=== PATIENT | female | born 1970 | race Caucasian/White ===

== ENCOUNTER 2016-09-22 16:41 | Inpatient (IN) ==
--- NOTE | 2016-09-22 18:50 | Emergency Department Note ---
START Narrative - START START: I examined this patient and my medical decision-making was reviewed with the Resident Physician. I agree with the documented findings, disposition and treatment plan as described except to the extent set forth below. 46-year-old female presents emergency room for a back wound evaluation. Patient had a recent spinal stimulator placement done. Now she is having pus drainage that she reports from the upper vertical incision. She has a history of being infected in this area before from a previous implant. She denies any bowel or bladder cutlets. No spinal cord complaints. No documented fevers. Patient was sent in by her physician for this evaluation to have a CT done and lab work. Unable to give IV contrast due to the patient's renal insufficiency. We will do a noncontrast CT of the lumbar spine as well as lab work.
[2016-09-22 18:56] LABS: Basophils # 0.1 K/mcL (0.0-0.2); Basophils % 0.6 %; Eosinophils # 0.6 K/mcL (0.0-0.6); Eosinophils % 6.3 %; Hematocrit 39.2 % (35.3-44.9); Hemoglobin 12.4 g/dL (11.5-15.4); Immature Granulocytes % 0.5 % (0-4); Lymphocytes # 2.4 K/mcL (0.6-4.6); Lymphocytes % 27.8 %; Mean Corpuscular HGB Conc 31.6 g/dL (31.6-35.5); Mean Corpuscular Hemoglobin 32.7 pg (28.0-33.3); Mean Corpuscular Volume 103.4 fL (83.0-100.0); Mean Platelet Volume 10.6 fL (9.4-12.4); Monocytes # 0.5 K/mcL (0.0-1.3); Monocytes % 5.4 %; Neutrophils # 5.2 K/mcL (1.6-8.9); Platelet Count 287 K/mcL (140-400); Red Blood Count 3.79 M/mcL (3.82-4.97); Red Cell Distribution Width 12.6 % (11.5-14.5); Segmented Neutrophils % 59.4 %
[2016-09-22 19:07] LABS: Calcium 9.3 mg/dL (8.6-10.8); Potassium 4.2 mEq/L (3.5-4.5)
[2016-09-22] MEDS ORDERED: 0.9 % Sodium Chloride 1,000 ML IVC ONE (20:16)
--- NOTE | 2016-09-22 20:27 | Emergency Department Note ---
Disposition Clinical Impression: Infection of spinal cord stimulator Qualifiers: Encounter type: subsequent encounter Qualified Code(s): T85.733D - Infection and inflammatory reaction due to implanted electronic neurostimulator of spinal cord, electrode (lead), subsequent encounter Disposition: Admitted As Inpatient Condition: Fair Referrals: NONE,PCP [Primary Care Provider] - Forms: ED Satisfaction Letter Time of Disposition: 21:48 General Adult HPI - General Chief complaint: ED Recheck/Abnormal Lab/Rx Stated complaint: needs CT Time Seen by Provider: 09/22/16 18:21 Source: patient Limitations: no limitations Nursing Notes Reviewed: Yes Vital Signs Reviewed: Yes - History of Present Illness HPI Narrative: The patient is a 46-year-old female with sent over from Dr. Willoughby's office of pain management secondary to suspected spinal stimulator infection. Patient states this is her second pain stimulator. Her first one had to be removed secondary to an infection. Patient is status post 3 weeks from insertion of this stimulator. Patient has a history of diabetes, ESRD stage IV. Dr. Willoughby called the ED stating patient needs CT thoracic lumbar spine labs and cultures and recommends admission for removal stimulator Pain Scale: 9 - Related Data Home Medications Medication Instructions Recorded Confirmed Albuterol Sulfate [Proair Hfa] 2 puff IH Q4H PRN 09/24/15 09/22/16 Aspirin Enteric Coated [Aspirin EC] 81 mg PO DAILY 09/24/15 09/22/16 Ergocalciferol (VITAMIN D2) 50,000 unit PO HERNANDEZ 09/24/15 09/22/16 [Vitamin D2 (50,000 UNIT)] Famotidine [Pepcid] 20 mg PO BID 09/24/15 09/22/16 Fenofibrate [Lofibra] 160 mg PO DAILY 09/24/15 09/22/16 Isosorbide MONOnitrate (24 HR) 30 mg PO DAILY 09/24/15 09/22/16 [Imdur] Montelukast [Singulair] 10 mg PO HS 09/24/15 09/22/16 Roflumilast [Daliresp] 500 mcg PO DAILY 09/24/15 09/22/16 SUMAtriptan succinate [Imitrex] 50 mg PO DAILY PRN 09/24/15 09/22/16 Tizanidine HCl 4 mg PO TID PRN 09/24/15 09/22/16 traMADol [Ultram] 50 mg PO TID PRN 09/24/15 09/22/16 Metoprolol XL (24 HR) Succ [Toprol 25 mg PO DAILY 10/19/15 09/22/16 XL] Oxaprozin [Daypro] 600 mg PO BID 10/19/15 09/22/16 Docusate Sodium [Doc-Q-Lace] 200 mg PO HS 10/26/15 09/22/16 EPINEPHrine [Epipen] 0.3 mg IM AD PRN 10/26/15 09/22/16 Amitriptyline [Elavil] 25 mg PO HS 09/22/16 09/22/16 Bacitracin OINT [Ak-Tracin] 1 appl TP BID 09/22/16 09/22/16 Budesonide/Formoterol 80/4.5 2 puff IH BID 09/22/16 09/22/16 [Symbicort 80/4.5] Cyanocobalamin (Vitamin B-12) 1,000 mcg PO DAILY 09/22/16 09/22/16 [Vitamin B12] Duloxetine HCl [Cymbalta] 60 mg PO DAILY 09/22/16 09/22/16 Febuxostat [Uloric] 40 mg PO DAILY 09/22/16 09/22/16 Folic Acid 1 mg PO DAILY 09/22/16 09/22/16 Glimepiride [Amaryl] 4 mg PO BID 09/22/16 09/22/16 Omeprazole [PriLOSEC] 40 mg PO DAILY 09/22/16 09/22/16 Rosuvastatin [Crestor] 20 mg PO HS 09/22/16 09/22/16 Tiotropium [Spiriva] 18 mcg IH 0700 09/22/16 09/22/16 Allergies Allergy/AdvReac Type Severity Reaction Status Date / Time Bee Pollen Allergy See Verified 09/22/16 16:53 Comments Erythromycin Base Allergy Hives Verified 09/22/16 16:53 Review of Systems: Patient denies fever, chills, nausea, vomiting, no diarrhea, abdominal pain, chest pain, shortness of breath. Patient has pain around the surgical site. All systems ED: reviewed and negative except as stated. Review of Systems: As Per HPI Past Medical History - Past Medical History Attestation: Yes The following information was validated with the patient. Source: patient Medical history: Reports: asthma, COPD, diabetes, GERD, hyperlipidemia, migraine , RA, renal disease, other Surgical history: Reports: hysterectomy, orthopedic, other, sinus surgery, other Psychiatric history: Reports: anxiety, depression, panic disorder - Social History Smoking Status: Current every day smoker Smokeless Tobacco Status: No Alcohol use: Reports: none Drug use: Reports: none Physical Exam Vital Signs Temperature 98.1 F 09/22/16 16:50 Pulse Rate 80 09/22/16 16:50 Respiratory Rate 18 09/22/16 16:50 Blood Pressure 124/83 09/22/16 16:50 O2 Sat by Pulse Oximetry 100 09/22/16 16:50 Temperature 98.1 F 09/22/16 16:50 Pulse Rate 76 09/22/16 20:30 Respiratory Rate 18 09/22/16 20:30 Blood Pressure 118/73 09/22/16 20:30 O2 Sat by Pulse Oximetry 98 09/22/16 20:30 Oxygen Delivery Oxygen Delivery Room Air -General Appearance: Patient is a 46-year-old female who is alert and oriented 3 and in no acute distress. Patient is smiling when I walked into the room. Patient is laying comfortably, and has no complaints other than she is with her pain similar to her back. -Neurological exam: Cranial nerves II-12 intact, no focal deficits observed, strength equal 5/5 bilaterally in upper and lower extremities, cerebellar motion test negative. Negative loss of sensation, - Head Head exam: atraumatic, normocephalic, normal inspection - Eye Eye exam: Present: normal appearance, PERRL, EOMI, negative for scleral icterus negative for conjunctival pallor - ENT ENT exam: normal exam, normal oropharynx, mucous membranes moist - Neck Neck exam: Present: normal inspection, full ROM, trachea midline, negative JVD - Chest Chest inspection: Present: Patient has bilateral equal rise and fall of chest wall. Non-tender to palpation. - Respiratory Respiratory exam: Clear to auscultation bilaterally without wheezes rales or rhonchi Cardiovascular Cardiovascular exam: Present: regular rate, normal rhythm, normal heart sounds, without murmurs rubs or gallops. - Abdominal Exam Abdominal exam: Present: soft, nondistended, Non-Tender light and deep palpation in all quadrants. Bowel sounds normoactive throughout all 4 quadrants. Negative for hyper or hyperresonance. - Extremities Exam Extremities exam: Present: normal inspection, full ROM - Back Exam Back exam: Present: normal inspection, full ROM. Absent: tenderness, CVA tenderness (R), CVA tenderness (L), tenderness at the site of induration surrounded midline surgical incision that has slight area of dehiscence and appears purulent. 5 cm area diameter of induration. No tenderness or inflammation around stimulator located right iliolumbar area. - Psychiatric Psychiatric exam: Present: normal affect, normal mood - Skin Skin exam: Present: warm, dry, abnormal incision site - General Limitations: no limitations General appearance: alert, in no apparent distress Course - Consultations Consultation #1: Spoke to Dr. Willoughby PM&R recommends admission and consultation with infectious disease and nephrology for broad-spectrum antibiotic plan to help preserve kidney function. He states that he will assess patient tomorrow concerning her pain stimulator to assess whether or not he can salvage the stimulator. If he cannot salvage the stimulator he will remove the stimulator himself. He states he does not see the need for surgical consult at this time. Time: 21:00 Consultation #2: Dr. Gannon has accepted for admission at 2137 hrs. this in brief and Dr. Willoughby 's plan for infectious disease consult to come up with broad-spectrum antibiotic plan to help preserve kidney function. Time: 21:41 Vital Signs Temperature 98.1 F 09/22/16 16:50 Pulse Rate 80 09/22/16 16:50 Respiratory Rate 18 09/22/16 16:50 Blood Pressure 124/83 09/22/16 16:50 O2 Sat by Pulse Oximetry 100 09/22/16 16:50 Temperature 98.1 F 09/22/16 16:50 Pulse Rate 76 09/22/16 20:30 Respiratory Rate 18 09/22/16 20:30 Blood Pressure 118/73 09/22/16 20:30 O2 Sat by Pulse Oximetry 98 09/22/16 20:30 Oxygen Delivery Oxygen Delivery Room Air Medical Decision Making - MDM Narrative Medical decision making narrative: Patient presented with postsurgical complication pain stimulator infection was sent over to the ED after seeing her pain specialist is Dr. Willoughby in office for workup of back CT, lab work, cultures and a request for admission for further assessment concerning the spinal pain stimulator. labs show a elevation of ESR but no elevation C and PE. ESR is 22. CT spine shows Lumbar Spine CT 09/22/16 18:50 IMPRESSION: 1. There is ill-defined fluid adjacent to the paraspinal musculature along the midline, without a well-defined rim. Probably, this is postsurgical edema. The possibility of phlegmon is also considered. Although an abscess is not entirely excluded, it is considered less likely. 2. Stimulator pack is in place within the subcutaneous fat in the right lower back. The superior most aspects of the leads are not visualized. 3. Question perinephric fat stranding bilaterally, somewhat greater on the right. Correlation with urinalysis is recommended. 4. Cholelithiasis, incompletely evaluated. D/ / Imer Carrillo MD / Imer Carrillo MD Interpreting Provider: Imer Carrillo MD I discussed the findings with Dr. Willoughby who still recommends admission. He does warn cautioned concerning broad-spectrum antibiotic use as patient's kidneys are still working but patient is ESRD stage IV being evaluated for dialysis. Patient is received 1 g of Rocephin and vancomycin on hold. Dr. Whittington states he will see patient tomorrow to assess the stimulator for salvage or removal. Patient is doing well, afebrile with stable vitals in normal ranges. Patient accepts admission and further treatment and care. Patient was accepted for admission by the hospitalist who is informed of conversation with Dr. Willoughby concerning ID and nephrology consults. - Medical Records Medical records reviewed: Yes I reviewed the patient's medical records. - Lab Data Lab results reviewed: Yes I reviewed the patient's lab results. Lab results narrative: Short CBC 09/22/16 Range/Units 18:47 WBC 8.7 (4.3-11.1) K/mcL Hgb 12.4 (11.5-15.4) g/dL Hct 39.2 (35.3-44.9) % Plt Count 287 (140-400) K/mcL Neutrophils # 5.2 (1.6-8.9) K/mcL BMP 09/22/16 Range/Units 18:47 Sodium 137 (136-145) mEq/L Potassium 4.2 (3.5-4.5) mEq/L Chloride 103 (98-109) mEq/L Carbon Dioxide 26 (19-29) mEq/L BUN 19 (7-20) mg/dL Creatinine 1.71 H (0.57-1.11) mg/dL Glucose 149 H (70-99) mg/dL Calcium 9.3 (8.6-10.8) mg/dL Urine 09/22/16 Range/Units 21:17 Urine Color Yellow (Yellow) Urine Clarity Clear (Clear) Urine pH 7.0 (5.0-8.0) pH Units Ur Specific [place] 1.021 (1.010-1.025) Urine Protein Negative (Neg-Trace) mg/dL Urine Glucose (UA) Normal (Normal) mg/dL Result diagrams: 09/22/16 18:47 09/22/16 18:47 Lab Results 09/22/16 09/22/16 09/22/16 Range/Units 18:47 18:47 18:47 WBC 8.7 (4.3-11.1) K/mcL RBC 3.79 L (3.82-4.97) M/mcL Hgb 12.4 (11.5-15.4) g/dL Hct 39.2 (35.3-44.9) % MCV 103.4 H (83.0-100.0) fL MCH 32.7 (28.0-33.3) pg MCHC 31.6 (31.6-35.5) g/dL RDW 12.6 (11.5-14.5) % Plt Count 287 (140-400) K/mcL MPV 10.6 (9.4-12.4) fL Immature Gran % 0.5 (0-4) % Seg Neutrophils % 59.4 % Lymphocytes % 27.8 % Monocytes % 5.4 % Eosinophils % 6.3 % Basophils % 0.6 % Neutrophils # 5.2 (1.6-8.9) K/mcL Lymphocytes # 2.4 (0.6-4.6) K/mcL Monocytes # 0.5 (0.0-1.3) K/mcL Eosinophils # 0.6 (0.0-0.6) K/mcL Basophils # 0.1 (0.0-0.2) K/mcL ESR 22 H (0-15) mm/hr Sodium 137 (136-145) mEq/L Potassium 4.2 (3.5-4.5) mEq/L Chloride 103 (98-109) mEq/L Carbon Dioxide 26 (19-29) mEq/L BUN 19 (7-20) mg/dL Creatinine 1.71 H (0.57-1.11) mg/dL Est GFR ( Amer) 39 L (> 60) Est GFR (Non-Af Amer) 32 L (> 60) BUN/Creatinine Ratio 11 (6-26) Glucose 149 H (70-99) mg/dL Calculated Osmolality 289 (280-300) Calcium 9.3 (8.6-10.8) mg/dL C-Reactive Protein 1 (Less than 5) mg/L Urine Color (Yellow) Urine Clarity (Clear) Urine pH (5.0-8.0) pH Units Ur Specific [place] (1.010-1.025) Urine Protein (Neg-Trace) mg/dL Urine Glucose (UA) (Normal) mg/dL Urine Ketones (Negative) mg/dL Urine Blood (Negative) Urine Nitrite (Negative) Urine Bilirubin (Negative) Urine Urobilinogen (Normal) mg/dL Ur Leukocyte Esterase (Negative) Ur Culture Indicated? (NO) 09/22/16 Range/Units 21:17 WBC (4.3-11.1) K/mcL RBC (3.82-4.97) M/mcL Hgb (11.5-15.4) g/dL Hct (35.3-44.9) % MCV (83.0-100.0) fL MCH (28.0-33.3) pg MCHC (31.6-35.5) g/dL RDW (11.5-14.5) % Plt Count (140-400) K/mcL MPV (9.4-12.4) fL Immature Gran % (0-4) % Seg Neutrophils % % Lymphocytes % % Monocytes % % Eosinophils % % Basophils % % Neutrophils # (1.6-8.9) K/mcL Lymphocytes # (0.6-4.6) K/mcL Monocytes # (0.0-1.3) K/mcL Eosinophils # (0.0-0.6) K/mcL Basophils # (0.0-0.2) K/mcL ESR (0-15) mm/hr Sodium (136-145) mEq/L Potassium (3.5-4.5) mEq/L Chloride (98-109) mEq/L Carbon Dioxide (19-29) mEq/L BUN (7-20) mg/dL Creatinine (0.57-1.11) mg/dL Est GFR ( Amer) (> 60) Est GFR (Non-Af Amer) (> 60) BUN/Creatinine Ratio (6-26) Glucose (70-99) mg/dL Calculated Osmolality (280-300) Calcium (8.6-10.8) mg/dL C-Reactive Protein (Less than 5) mg/L Urine Color Yellow (Yellow) Urine Clarity Clear (Clear) Urine pH 7.0 (5.0-8.0) pH Units Ur Specific [place] 1.021 (1.010-1.025) Urine Protein Negative (Neg-Trace) mg/dL Urine Glucose (UA) Normal (Normal) mg/dL Urine Ketones Negative (Negative) mg/dL Urine Blood Negative (Negative) Urine Nitrite Negative (Negative) Urine Bilirubin Negative (Negative) Urine Urobilinogen Normal (Normal) mg/dL Ur Leukocyte Esterase Negative (Negative) Ur Culture Indicated? NO (NO) - Radiology Data Radiology results reviewed: Yes I reviewed the patient's radiology results. Lumbar Spine CT 09/22/16 18:50
[2016-09-22] MEDS ORDERED: Vancomycin 2,000 MG in D5% in Water 500 ML IVPB ONE (20:28)
[2016-09-22] MEDS ORDERED: Vancomycin 1,750 MG in D5% in Water 250 ML IVPB SCH (21:00)
[2016-09-22] MEDS ORDERED: Ondansetron 4 MG/2 ML VIAL IVP ONE (21:01)
[2016-09-22] MEDS ORDERED: *HR* Morphine 2 MG/ML SYRINGE IVP ONE (21:02)
[2016-09-22 21:27] LABS: Bilirubin,Urine Negative (Negative); Blood,Urine Negative (Negative); Clarity,Urine Clear (Clear); Color,Urine Yellow (Yellow); Glucose,Urine (UA) Normal (Normal); Ketones,Urine Negative (Negative); Leukocyte Esterase,Urine Negative (Negative); Nitrite,Urine Negative (Negative); Protein,Urine Negative (Neg-Trace); Specific Gravity,Urine 1.021 (1.010-1.025); Urobilinogen,Urine Normal (Normal)
--- NOTE | 2016-09-22 23:37 | Internal Med History&Physical ---
Date of Encounter: 09/22/16 Time of Encounter: 23:34 Assessment and Plan (1) Infection of spinal cord stimulator Current visit: No Status: Acute I will start the patient on clindamycin and Levaquin. He did not feel after midnight. Dr. Jacobs to see the patient in the morning. Avoid nephrotoxic drugs. Qualifiers: Encounter type: initial encounter Qualified Code(s): T85.733A - Infection and inflammatory reaction due to implanted electronic neurostimulator of spinal cord, electrode (lead), initial encounter (2) Diabetes mellitus Current visit: Yes Status: Acute Sliding scale insulin Qualifiers: Qualified Code(s): E11.9 - Type 2 diabetes mellitus without complications (3) CKD stage 3 secondary to diabetes Current visit: Yes Status: Acute Stable Internal Medicine - H&P: HPI Chief complaint: stimulator infection History of present illness: Ms. Calvo is a 46 year old female with multiple medical problems presented emergency room sent from Dr. Jacobs's office because of concern of infected spine stimulator. Patient had spine stimulator placed 3 weeks ago. mentioned that she was having some drainage from insertion site. She denies any fevers or chills. No abdominal pain. He had a CT scan this morning showing concern for simulator site infection and was therefore sent to the emergency room. Family had simulator infection previously concerns with antibiotics which caused her kidney injury. Past Med Surg Social Fam HX - Past Medical History Medical history: asthma, COPD, diabetes, GERD, hyperlipidemia, migraine, RA, renal disease, other Psychiatric history: anxiety, depression, panic disorder - Past Surgical History Surgical History: hysterectomy, orthopedic, other, sinus surgery, other - Social History Smoking Status: Current every day smoker Packs per day: 1/2 pack Smokeless Tobacco Status: No Alcohol use: none Drug use: none - Family History Father Hx Family Cardiac Disorders: Yes (AK) Hx Family Endocrine Disorder: Yes (Diabetes) Grandfather Hx Family Respiratory Disorders: Yes (Emphysema) Internal Medicine - H&P: Meds Albuterol Sulfate [Proair Hfa] 2 puff IH Q4H PRN 09/24/15 [History] Aspirin Enteric Coated [Aspirin EC] 81 mg PO DAILY 09/24/15 [History] Ergocalciferol (VITAMIN D2) [Vitamin D2 (50,000 UNIT)] 50,000 unit PO HERNANDEZ [History] Famotidine [Pepcid] 20 mg PO BID 09/24/15 [History] Fenofibrate [Lofibra] 160 mg PO DAILY 09/24/15 [History] Isosorbide MONOnitrate (24 HR) [Imdur] 30 mg PO DAILY 09/24/15 [History] Montelukast [Singulair] 10 mg PO HS 09/24/15 [History] Roflumilast [Daliresp] 500 mcg PO DAILY 09/24/15 [History] SUMAtriptan succinate [Imitrex] 50 mg PO DAILY PRN 09/24/15 [History] Tizanidine HCl 4 mg PO TID PRN 09/24/15 [History] traMADol [Ultram] 50 mg PO TID PRN 09/24/15 [History] Metoprolol XL (24 HR) Succ [Toprol XL] 25 mg PO DAILY 10/19/15 [History] Oxaprozin [Daypro] 600 mg PO BID 10/19/15 [History] Docusate Sodium [Doc-Q-Lace] 200 mg PO HS 10/26/15 [History] EPINEPHrine [Epipen] 0.3 mg IM AD PRN 10/26/15 [History] Amitriptyline [Elavil] 25 mg PO HS 09/22/16 [History] Bacitracin OINT [Ak-Tracin] 1 appl TP BID 09/22/16 [History] Budesonide/Formoterol 80/4.5 [Symbicort 80/4.5] 2 puff IH BID 09/22/16 [History ] Cyanocobalamin (Vitamin B-12) [Vitamin B12] 1,000 mcg PO DAILY 09/22/16 [History ] Duloxetine HCl [Cymbalta] 60 mg PO DAILY 09/22/16 [History] Febuxostat [Uloric] 40 mg PO DAILY 09/22/16 [History] Folic Acid 1 mg PO DAILY 09/22/16 [History] Glimepiride [Amaryl] 4 mg PO BID 09/22/16 [History] Omeprazole [PriLOSEC] 40 mg PO DAILY 09/22/16 [History] Rosuvastatin [Crestor] 20 mg PO HS 09/22/16 [History] Tiotropium [Spiriva] 18 mcg IH 0700 09/22/16 [History] Allergies Bee Pollen Allergy (Verified 09/22/16 16:53) See Comments Erythromycin Base Allergy (Verified 09/22/16 16:53) Hives All Systems PM: A 10-system review of systems was performed and is negative for pertinent findings except as documented above in the HPI. Review of systems: 10 point review systems is negative except for HPI - Constitutional Vitals: Temp Pulse Resp BP Pulse Ox 98.3 F 82 18 138/93 98 09/22/16 22:33 09/22/16 22:33 09/22/16 22:33 09/22/16 22:33 09/22/16 22:33 Exam: Gen.: patient is alert oriented times 3 Not in distress cardiac: normal S1 S2 no additional sounds are murmurs chest: clear auscultation abdomen: soft nontender nondistended normal bowel sounds lower extremity lax calf muscles Back: opening at stimulator insertion site. Family mentions there is small ammount of drainage form it Internal Med - H&P Results - Labs CBC & Chem 7: 09/22/16 18:47 09/22/16 18:47
[2016-09-22] MEDS ORDERED: Levofloxacin 750 MG/150 ML 750 MG/150 ML BAG IVPB SCH (23:45)
[2016-09-23] MEDS ORDERED: Clindamycin 900 MG/50 ML 900 MG/50 ML IV.SOLN IVPB SCH
[2016-09-23] MEDS: traMADol 50 MG TABLET PO PRN ×3 (00:01→21:56)
[2016-09-23] MEDS: *HR* Morphine 2 MG/ML SYRINGE IVP PRN (03:53)
[2016-09-23 06:18] LABS: Basophils # 0.1 K/mcL (0.0-0.2); Basophils % 0.6 %; Eosinophils # 0.6 K/mcL (0.0-0.6); Eosinophils % 6.7 %; Hematocrit 37.5 % (35.3-44.9); Hemoglobin 12.1 g/dL (11.5-15.4); Immature Granulocytes % 1.1 % (0-4); Lymphocytes # 3.5 K/mcL (0.6-4.6); Lymphocytes % 40.4 %; Mean Corpuscular HGB Conc 32.3 g/dL (31.6-35.5); Mean Corpuscular Hemoglobin 33.3 pg (28.0-33.3); Mean Corpuscular Volume 103.3 fL (83.0-100.0); Mean Platelet Volume 11.3 fL (9.4-12.4); Monocytes # 0.7 K/mcL (0.0-1.3); Monocytes % 7.9 %; Neutrophils # 3.7 K/mcL (1.6-8.9); Nucleated Red Blood Cells 0.2 /100 WBC (0); Platelet Count 230 K/mcL (140-400); Red Blood Count 3.63 M/mcL (3.82-4.97); Red Cell Distribution Width 12.7 % (11.5-14.5); Segmented Neutrophils % 43.3 %
[2016-09-23] MEDS ORDERED: Clindamycin 600 MG/50 ML 600 MG/50 ML IV.SOLN IVPB SCH (08:00)
[2016-09-23] MEDS: Budesonide/Formoterol 80/4.5 MDI IH SCH ×2 (08:37→21:21)
[2016-09-23] MEDS: Tiotropium 18 MCG inhalation IH SCH (08:37)
[2016-09-23] MEDS: Fenofibrate 54 MG TABLET PO SCH (08:58)
[2016-09-23] MEDS: Metoprolol XL (24 HR) Succ 25 MG TAB.ER.24H PO SCH (08:58)
[2016-09-23] MEDS: Isosorbide MONOnitrate (24 HR) 30 MG TAB.ER.24H PO SCH (08:58)
[2016-09-23] MEDS: Aspirin Enteric Coated 81 MG Tablet PO SCH (08:58)
[2016-09-23] MEDS: Patient Taking Own Medication 1 EACH PO SCH (08:58)
[2016-09-23] MEDS: Insulin LISPRO 300 UNITS/3 ML VIAL SQ SCH ×4 (08:58→23:07)
[2016-09-23] MEDS ORDERED: Famotidine 20 MG TABLET PO SCH (09:00)
[2016-09-23 11:29] LABS: Calcium 9.1 mg/dL (8.6-10.8); Magnesium 1.7 mg/dL (1.6-2.6); Potassium 4.6 mEq/L (3.5-4.5)
[2016-09-23] MEDS ORDERED: *HR* OxyCODONE/APAP 5/325 TABLET PO ONE (11:48)
--- NOTE | 2016-09-23 13:18 | Internal Med Progress Note ---
<Eduardo Galaviz - Last Filed: 09/23/16 15:16> Date of Encounter: 09/23/16 Time of Encounter: 10:27 - Assessment and plan (1) Infection of spinal cord stimulator Current Visit: Yes Status: Acute Assessment and plan: Presents for concern for spinal cord stimulator infection inserted 3 weeks ago. Previous infection of 1st spinal cord stimulator CT shows ill-defined fluid near stimulator: most likely post-surgical edema, possibly phelgmon, and less likely abscess Blood culture 09/22/16 pending Wound culture 09/23/16 pending ID following - appreciate recommendations - continue antibiotics as per ID Plan for surgical I & D to further evaluate - patient currently NPO Qualifiers: Encounter type: subsequent encounter Qualified Code(s): T85.733D - Infection and inflammatory reaction due to implanted electronic neurostimulator of spinal cord, electrode (lead), subsequent encounter (2) CKD stage 3 secondary to diabetes Current Visit: Yes Status: Chronic Assessment and plan: Cr 1.7 (baseline 1.1-1.7) - will continue to monitor and avoid nephrotoxic drugs - Avoid vancomycin unless absolutely necessary - previous kidney injury on vancomycin Nephrology following - appreciate recommendations (3) Diabetes mellitus Current Visit: Yes Status: Chronic Assessment and plan: Currently NPO awaiting surgical I & D Sliding scale insulin, glucose checks - continue to monitor Qualifiers: Diabetes mellitus type: type 2 Diabetes mellitus complication status: with kidney complications Diabetes mellitus complication detail: with chronic kidney disease Chronic kidney disease stage: stage 3 (moderate) Qualified Code(s): E11.22 - Type 2 diabetes mellitus with diabetic chronic kidney disease ; N18.3 - Chronic kidney disease, stage 3 (moderate); Z79.4 - longterm (current ) use of insulin - Subjective Interval history: Patient seen and examined. Reports her back pain is under control, but she has a posterior headache. Reports there is mild drainage from nerve stimulator site. Denies chest pain, dyspnea, cough, N/V/D, dysuria, or leg edema. - Constitutional Vitals: Temp Pulse Resp BP Pulse Ox 98.3 F 77 16 98/64 96 09/23/16 12:00 09/23/16 12:00 09/23/16 12:00 09/23/16 11:40 09/23/16 12:00 General appearance: Present: A&O X 3, no acute distress, answers questions appropriately - Head Head exam: Present: atraumatic, normocephalic - Eye Eye exam: Present: sclera anicteric - ENT ENT exam: Present: mucous membranes moist - Respiratory Respiratory exam: Present: CTAB. Absent: rales, rhonchi, wheezes - Cardiovascular Cardiovascular exam: Present: RRR, +S1, +S2. Absent: distant heart sounds, systolic murmur - GI/Abdominal GI/Abdominal exam: Present: normal bowel sounds, soft. Absent: distended, rigid , tenderness - Extremities Exam Extremities exam: Present: warm, radial pulses palpable and symmetrical. Absent : calf tenderness, joint swelling, pedal edema - Neurological Exam Neurological exam: Present: alert, CN II-XII intact, oriented X3, no focal deficits Internal Medicine: Result - Labs CBC & Chem 7: 09/23/16 05:57 09/23/16 13:11 Labs: Short CBC 09/23/16 Range/Units 05:57 WBC 8.6 (4.3-11.1) K/mcL Hgb 12.1 (11.5-15.4) g/dL Hct 37.5 (35.3-44.9) % Plt Count 230 (140-400) K/mcL Neutrophils # 3.7 (1.6-8.9) K/mcL BMP 09/23/16 09:34 Sodium 139 Potassium 4.6 H Chloride 107 Carbon Dioxide 22 BUN 17 Creatinine 1.62 H Glucose 81 Calcium 9.1 - VTE Documentation of Mechanical Device: Intermittent pneumatic compression device Consult Discharge Plan - Plan Additional Instructions: Follow wound care instructions per nursing and wound care. Do not submerge the incisions in water until we tell you it is okay. We will give more instructions upon your discharge home. Referrals: NONE,PCP [Primary Care Provider] - <Jean Paul Ramsey - Last Filed: 09/23/16 19:28> Date of Encounter: 09/23/16 - Assessment and plan (1) Infection of spinal cord stimulator Current Visit: Yes Status: Acute Qualifiers: Encounter type: subsequent encounter Qualified Code(s): T85.733D - Infection and inflammatory reaction due to implanted electronic neurostimulator of spinal cord, electrode (lead), subsequent encounter (2) Diabetes mellitus Current Visit: Yes Status: Chronic Qualifiers: Diabetes mellitus type: type 2 Diabetes mellitus complication status: with kidney complications Diabetes mellitus complication detail: with chronic kidney disease Diabetes mellitus oil heaterman insulin use: with assisted use Chronic kidney disease stage: stage 3 (moderate) Qualified Code(s): E11.22 - Type 2 diabetes mellitus with diabetic chronic kidney disease; N18.3 - Chronic kidney disease, stage 3 (moderate); Z79.4 - termite control representative (current) use of insulin (3) COPD with asthma Current Visit: No Status: Chronic (4) Tobacco abuse Current Visit: No Status: Acute - Constitutional Vitals: Temp Pulse Resp BP Pulse Ox 98.1 F 75 14 105/68 95 09/23/16 16:12 09/23/16 16:12 09/23/16 16:12 09/23/16 16:12 09/23/16 16:12 Internal Medicine: Result - Labs CBC & Chem 7: 09/23/16 05:57 09/23/16 13:11 Labs: Short CBC 09/23/16 Range/Units 05:57 WBC 8.6 (4.3-11.1) K/mcL Hgb 12.1 (11.5-15.4) g/dL Hct 37.5 (35.3-44.9) % Plt Count 230 (140-400) K/mcL Neutrophils # 3.7 (1.6-8.9) K/mcL BMP 09/23/16 09/23/16 09:34 13:11 Sodium 139 138 Potassium 4.6 H 4.4 Chloride 107 105 Carbon Dioxide 22 27 BUN 17 16 Creatinine 1.62 H 1.64 H Glucose 81 123 H Calcium 9.1 9.3 - ABG Interpretation ABG results: PT/INR, D-dimer PT 11.3 Seconds (9.4-12.1) 09/23/16 13:11 - Attending Attestation I examined this patient and my medical decision-making was reviewed with the Resident Physician on 09/23/16. I agree with the documented findings, disposition and treatment plan as described except to the extent set forth below. Ms Calvo is currently admitted for possible infected spinal stimulator. She is high risk due to potential for worsening infectious and neurologic status. Ms Calvo is complaining mostly of a headache. No fever or chills. Tolerating IV abx. No CP or SOB. To go to OR today. Exam Alert. Comfortable Mucus membranes moist Heart reg No wheeze Abd soft I/P 1. Spinal stimulator infection 2. Chronic pain 3. DM CKD Further diagnoses and plan as above.
[2016-09-23 13:30] LABS: Prothrombin Time 11.3 Seconds (9.4-12.1)
[2016-09-23 13:33] LABS: Activated Partial Thrombo Time 24.8 Seconds (26.0-36.0)
[2016-09-23 13:34] LABS: Calcium 9.3 mg/dL (8.6-10.8); Potassium 4.4 mEq/L (3.5-4.5)
--- NOTE | 2016-09-23 13:40 | Nephrology Consult Note ---
Date of Encounter: 09/23/16 Time of Encounter: 13:37 Assessment and Plan (1) CKD (chronic kidney disease) stage 3, GFR 30-59 ml/min Current Visit: No Status: Acute Kidney function at baseline, or better Recommend not using Vanco however it this drug must be used, pharmacy to dose Avoid nephrotoxins if possible (2) Infection of spinal cord stimulator Current Visit: Yes Status: Acute per primary team Qualifiers: Encounter type: subsequent encounter Qualified Code(s): T85.733D - Infection and inflammatory reaction due to implanted electronic neurostimulator of spinal cord, electrode (lead), subsequent encounter History of Present Illness - Reason for Consult Consult date: 09/23/16 - Chief Complaint CKD stage 3/4, infection of spinal cord stimulator - History of Present Illness Ms. Calvo is a 46 year old female with multiple medical problems presented emergency room sent from Dr. Jacobs's office because of concern of infected spine stimulator which was just placed [address] scan this morning showing concern for simulator site infection and was therefore sent to the emergency room. Nephrology has been consults to manage her CKD while hospitalized. 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 Patient seen Dr Mcmullen, kennel supervisor, on 09/08 where she was found to have a worsening CKD from stage 3 to stage 4. Follow up appointment with Dr Mcmullen in December. Past Med Surg Social Fam HX - Past Medical History Medical history: asthma, COPD, diabetes, GERD, hyperlipidemia, migraine, RA, renal disease, other Psychiatric history: anxiety, depression, panic disorder - Past Surgical History Surgical History: hysterectomy, orthopedic, other, sinus surgery, other - Social History Smoking Status: Current every day smoker Packs per day: 1/2 pack Smokeless Tobacco Status: No Alcohol use: none Drug use: none - Family History Father Hx Family Cardiac Disorders: Yes (NM) Hx Family Endocrine Disorder: Yes (Diabetes) Grandfather Hx Family Respiratory Disorders: Yes (Emphysema) Medications and Allergies Albuterol Sulfate [Proair Hfa] 2 puff IH Q4H PRN 09/24/15 [History] Aspirin Enteric Coated [Aspirin EC] 81 mg PO DAILY 09/24/15 [History] Ergocalciferol (VITAMIN D2) [Vitamin D2 (50,000 UNIT)] 50,000 unit PO HERNANDEZ [History] Famotidine [Pepcid] 20 mg PO BID 09/24/15 [History] Fenofibrate [Lofibra] 160 mg PO DAILY 09/24/15 [History] Isosorbide MONOnitrate (24 HR) [Imdur] 30 mg PO DAILY 09/24/15 [History] Montelukast [Singulair] 10 mg PO HS 09/24/15 [History] Roflumilast [Daliresp] 500 mcg PO DAILY 09/24/15 [History] SUMAtriptan succinate [Imitrex] 50 mg PO DAILY PRN 09/24/15 [History] Tizanidine HCl 4 mg PO TID PRN 09/24/15 [History] traMADol [Ultram] 50 mg PO TID PRN 09/24/15 [History] Metoprolol XL (24 HR) Succ [Toprol XL] 25 mg PO DAILY 10/19/15 [History] Oxaprozin [Daypro] 600 mg PO BID 10/19/15 [History] Docusate Sodium [Doc-Q-Lace] 200 mg PO HS 10/26/15 [History] EPINEPHrine [Epipen] 0.3 mg IM AD PRN 10/26/15 [History] Amitriptyline [Elavil] 25 mg PO HS 09/22/16 [History] Bacitracin OINT [Ak-Tracin] 1 appl TP BID 09/22/16 [History] Budesonide/Formoterol 80/4.5 [Symbicort 80/4.5] 2 puff IH BID 09/22/16 [History ] Cyanocobalamin (Vitamin B-12) [Vitamin B12] 1,000 mcg PO DAILY 09/22/16 [History ] Duloxetine HCl [Cymbalta] 60 mg PO DAILY 09/22/16 [History] Febuxostat [Uloric] 40 mg PO DAILY 09/22/16 [History] Folic Acid 1 mg PO DAILY 09/22/16 [History] Glimepiride [Amaryl] 4 mg PO BID 09/22/16 [History] Omeprazole [PriLOSEC] 40 mg PO DAILY 09/22/16 [History] Rosuvastatin [Crestor] 20 mg PO HS 09/22/16 [History] Tiotropium [Spiriva] 18 mcg IH 0700 09/22/16 [History] Allergies Bee Pollen Allergy (Verified 09/22/16 16:53) See Comments Erythromycin Base Allergy (Verified 09/22/16 16:53) Hives Review of Systems All Systems: reviewed and no additional remarkable complaints except as stated Constitutional: no chills, no fever(s) Cardiovascular: no chest pain, no dyspnea Respiratory: no dyspnea Gastrointestinal: no diarrhea, no nausea Integumentary: other (drainage from spinal cord stimulator site) Neurological: no behavioral changes Exam - Vital Signs Vital signs: Initial Vital Signs Temp Pulse Resp BP Pulse Ox 98.1 F 80 18 124/83 100 09/22/16 16:50 09/22/16 16:50 09/22/16 16:50 09/22/16 16:50 09/22/16 16:50 Vital Signs - Last 8 Hours Temp Pulse Resp BP Pulse Ox 09/23/16 12:00 98.3 F 77 16 96 09/23/16 11:40 98/64 09/23/16 08:38 16 97 09/23/16 07:38 97.9 F 70 16 91/60 97 Intake and Output 09/22/16 09/23/16 09/23/16 23:59 07:59 15:59 Intake Total 50 / 50 Balance 50 / 50 Intake: IV Fluids 50 / 50 Cleocin Premix 600 MG/50 50 / 50 ML 600 mg In 50 ml @ 50 mls/hr IVPB Q8HR [facility] Rx#: [id number] Other: Meal NPO at this time # Voids 1 Weight 110.2 kg Blood Glucose* 97 190 - General Appearance General appearance: well-developed, well-nourished, obese EENT: ATNC, mucous membranes moist, hearing intact, vision intact Neck: supple Respiratory: clear Cardiology: no edema, normal S1, normal S2 Gastrointestinal: no tenderness, no guarding, obese Integumentary: warm and dry Neurologic: alert and oriented x3 Psychiatric: mood/affect appropriate, cooperative Results - Lab Results 09/23/16 05:57 09/23/16 13:11 Most recent lab results Calcium 9.3 mg/dL (8.6-10.8) 09/23/16 13:11 Magnesium 1.7 mg/dL (1.6-2.6) 09/23/16 09:34 Consult Discharge Plan - Plan Referrals: NONE,PCP [Primary Care Provider] -
--- NOTE | 2016-09-23 14:05 | Infectious Disease Consult ---
Date of Encounter: 09/23/16 Time of Encounter: 13:30 Assessment and Plan (1) Wound dehiscence, surgical Status: Acute Assessment and plan: Previous pain stimulator inserted by Dr. Willoughby in her lower L-spine during September 2015 for peripheral neuropathy. The pain stimulator was subsequently removed due to staph infection complicated by stage V renal failure following vancomycin administration. A second pain stimulator was inserted by Dr. Willoughby on 08/25/16. Patient reported a knot that appeared at the top of her incision and the wound came apart about 3 weeks following surgery and drainage started running down her back from the incision site. Patient reports using bacitracin ointment on the wound and washing the area with Dial soap twice a day after her postop visit. White blood count 8.7, ESR 22, CRP 1 CT of the lumbar spine revealed ill-defined fluid adjacent to the paraspinal musculature along the midline, without a well-defined rim. Probably, this is postsurgical edema. The possibility of phlegmon is also considered. Although an abscess is not entirely excluded, it is considered less likely. Stimulator pack is in place within the subcutaneous fat in the right lower back. The superior most aspects of the leads are not visualized. Wound cultures were collected on 09/23/16 and results are pending Blood cultures were collected on 09/22/16 and results are pending Patient was initially given Rocephin in the ED then transition to Clindamycin and Levaquin on 09/23/16 Recommendations: Awaiting surgical I&D of the wound. Please collect intra-operative cultures. Will hold antibiotics for now and await intra-operative cultures. Will start Cefepime 2g IV q12h and Daptomycin 4mg/kg IV q24h after surgery. Duration of antibiotics depends on clinical course. We will adjust antibiotic regimen based on culture results. Continue to monitor for drug toxicity. We will continue to follow Qualifiers: Encounter type: initial encounter Qualified Code(s): T81.31XA - Disruption of external operation (surgical) wound, not elsewhere classified, initial encounter (2) Diabetes mellitus Status: Chronic Assessment and plan: Continue current management Qualifiers: Diabetes mellitus type: type 2 Diabetes mellitus complication status: with kidney complications Diabetes mellitus complication detail: with chronic kidney disease Diabetes mellitus assistant terminal manager insulin use: with assistant terminal manager use Chronic kidney disease stage: stage 3 (moderate) Qualified Code(s): E11.22 - Type 2 diabetes mellitus with diabetic chronic kidney disease; N18.3 - Chronic kidney disease, stage 3 (moderate); Z79.4 - watermelon harvesting supervisor (current) use of insulin (3) Diabetic neuropathy Status: Chronic Assessment and plan: Management per primary Qualifiers: Diabetes mellitus type: type 2 Diabetes mellitus complication detail: diabetic polyneuropathy Qualified Code(s): E11.42 - Type 2 diabetes mellitus with diabetic polyneuropathy (4) CKD (chronic kidney disease) stage 3, GFR 30-59 ml/min Status: Acute Assessment and plan: Nephrology following. Previous stage V renal failure following vancomycin administration. Will avoid/limit exposure to nephrotoxins (5) Tobacco abuse Status: Acute Assessment and plan: Patient declined a nicotine patch at this time Infectious Disease HPI - Data of Consult Consult date: 09/23/16 Requesting Physician: Jean Paul Ramsey DO Primary Care Provider: PCP NONE - Consult Narrative Reason for consult: Pain Pump infection History of present illness: Ms. Calvo is a 46 year old female that was admitted on 09/22/16 for suspected spinal stimulator infection. Infectious disease was consulted on 09/23/16 for pain stimulator infection. Ms. Calvo is a 46 year old female with a PMH significant for asthma, COPD, diabetes, GERD, hyperlipidemia, migraine, RA, and CKD Stage IV that previously had a pain stimulator inserted by Dr. Willoughby in her lower L-spine during September 2015 for peripheral neuropathy. The pain stimulator was subsequently removed due to staph infection complicated by stage V renal failure following vancomycin administration. A second pain stimulator was inserted by Dr. Willoughby on 08/25/16. Patient reported a knot that appeared at the top of her incision and the wound came apart about 3 weeks following surgery and drainage started running down her back from the incision site. Patient reports using bacitracin ointment on the wound and washing the area with Dial soap twice a day after her postop visit. Patient reported associated chills, nausea, diarrhea, and 6 pounds weight loss in the past week. Eyes fever, rigors, vomiting, chest pain, shortness of breath, or axial lymph node swelling. Since admission patient has not met SIRS criteria. Labs on admission revealed a white blood count 8.7, BUN 119, creatinine 1.71, ESR 22, CRP 1, and UA was unremarkable CT of the lumbar spine revealed ill-defined fluid adjacent to the paraspinal musculature along the midline, without a well-defined rim. Probably, this is postsurgical edema. The possibility of phlegmon is also considered. Although an abscess is not entirely excluded, it is considered less likely. Stimulator pack is in place within the subcutaneous fat in the right lower back. The superior most aspects of the leads are not visualized. Wound cultures were collected on 09/23/16 and results are pending Blood cultures were collected on 09/22/16 and results are pending Patient was initially given Rocephin in the ED then transition to clindamycin and Levaquin on 09/23/16 Patient is currently nothing by mouth awaiting surgical I&D of the wound. Other consultants include nephrology, orthopedics, and pain management. Today the patient complains of nausea, cold sores on her lip, and pain level is controlled. Last bowel movement was yesterday. CC: Jean Paul Ramsey, DO Past Med Surg Social Fam HX - Past Medical History Medical history: asthma, COPD, diabetes, GERD, hyperlipidemia, migraine, RA, renal disease, other Psychiatric history: anxiety, depression, panic disorder - Past Surgical History Surgical History: hysterectomy, orthopedic, other, sinus surgery, other (BTL, polyp on vocal cords) - Social History Smoking Status: Current every day smoker Packs per day: 1/2 pack Smokeless Tobacco Status: No Alcohol use: none Drug use: none - Family History Father Hx Family Cardiac Disorders: Yes (GA) Hx Family Endocrine Disorder: Yes (Diabetes) Grandfather Hx Family Respiratory Disorders: Yes (Emphysema) Infectious Disease-CN:Meds Albuterol Sulfate [Proair Hfa] 2 puff IH Q4H PRN 09/24/15 [History] Aspirin Enteric Coated [Aspirin EC] 81 mg PO DAILY 09/24/15 [History] Ergocalciferol (VITAMIN D2) [Vitamin D2 (50,000 UNIT)] 50,000 unit PO HERNANDEZ [History] Famotidine [Pepcid] 20 mg PO BID 09/24/15 [History] Fenofibrate [Lofibra] 160 mg PO DAILY 09/24/15 [History] Isosorbide MONOnitrate (24 HR) [Imdur] 30 mg PO DAILY 09/24/15 [History] Montelukast [Singulair] 10 mg PO HS 09/24/15 [History] Roflumilast [Daliresp] 500 mcg PO DAILY 09/24/15 [History] SUMAtriptan succinate [Imitrex] 50 mg PO DAILY PRN 09/24/15 [History] Tizanidine HCl 4 mg PO TID PRN 09/24/15 [History] traMADol [Ultram] 50 mg PO TID PRN 09/24/15 [History] Metoprolol XL (24 HR) Succ [Toprol XL] 25 mg PO DAILY 10/19/15 [History] Oxaprozin [Daypro] 600 mg PO BID 10/19/15 [History] Docusate Sodium [Doc-Q-Lace] 200 mg PO HS 10/26/15 [History] EPINEPHrine [Epipen] 0.3 mg IM AD PRN 10/26/15 [History] Amitriptyline [Elavil] 25 mg PO HS 09/22/16 [History] Bacitracin OINT [Ak-Tracin] 1 appl TP BID 09/22/16 [History] Budesonide/Formoterol 80/4.5 [Symbicort 80/4.5] 2 puff IH BID 09/22/16 [History ] Cyanocobalamin (Vitamin B-12) [Vitamin B12] 1,000 mcg PO DAILY 09/22/16 [History ] Duloxetine HCl [Cymbalta] 60 mg PO DAILY 09/22/16 [History] Febuxostat [Uloric] 40 mg PO DAILY 09/22/16 [History] Folic Acid 1 mg PO DAILY 09/22/16 [History] Glimepiride [Amaryl] 4 mg PO BID 09/22/16 [History] Omeprazole [PriLOSEC] 40 mg PO DAILY 09/22/16 [History] Rosuvastatin [Crestor] 20 mg PO HS 09/22/16 [History] Tiotropium [Spiriva] 18 mcg IH 0700 09/22/16 [History] Allergies Bee Pollen Allergy (Verified 09/22/16 16:53) See Comments Erythromycin Base Allergy (Verified 09/22/16 16:53) Hives Review of systems: Travel: denies recent travel Animal exposure: Denies Sick contacts: Denies. Diet: denies ingestion of undercooked or raw meats. Dental: denies recent dental procedures - Constitutional Constitutional: Present: chills, weight loss. Absent: fatigue, fever(s), headache(s), weight gain - EENT Eyes: Absent: change in vision Nose, mouth and throat: Present: mouth lesions (lip). Absent: dry mouth, lip swelling, nasal congestion - Cardiovascular Cardiovascular: Absent: chest pain, palpitations, pedal edema, rapid heart rate - Respiratory Respiratory: Absent: cough, wheezing, chest congestion, excessive phlegm production - Gastrointestinal Gastrointestinal: Present: diarrhea, nausea. Absent: abdominal pain, vomiting - Genitourinary Genitourinary: Absent: dysuria, flank pain, nocturia Menstruation: post hysterectomy - Musculoskeletal Musculoskeletal: Present: back pain, myalgias, numbness - Integumentary Integumentary: Present: lesions, wounds. Absent: change in hair, change in nails, erythema - Psychiatric Psychiatric: Absent: anxiety, confusion - Endocrine Endocrine: Absent: cold intolerance, heat intolerance, palpitations, polydipsia , polyphagia, polyuria - Hematologic/Lymphatic Hematologic/Lymphatic: Absent: lymphadenopathy Exam - Constitutional Vitals: Temp Pulse Resp BP Pulse Ox 98.3 F 77 16 98/64 96 09/23/16 12:00 09/23/16 12:00 09/23/16 12:00 09/23/16 11:40 09/23/16 12:00 General appearance: cooperative, no acute distress, obese Exam: appears older than stated age - Head Head exam: Present: atraumatic, normal inspection, normocephalic - Eye Eye exam: Present: conjuntiva pink - ENT ENT exam: Present: mucous membranes dry, normal oropharynx Additional comments: Fever blisters at angles of mouth bilaterally - Expanded ENT Exam Throat exam: Absent: post pharyngeal erythema - Respiratory Respiratory exam: Present: CTAB. Absent: rhonchi, wheezes - Cardiovascular Cardiovascular exam: Present: RRR, +S1, +S2. Absent: diastolic murmur, systolic murmur - GI/Abdominal GI/Abdominal exam: Present: normal bowel sounds, soft. Absent: guarding, rebound - Extremities Exam Extremities exam: Present: full ROM. Absent: pedal edema Additional comments: Right toe #3 amputation - Neurological Exam Neurological exam: Present: alert, CN II-XII intact, oriented X3, no focal deficits. Absent: altered - Psychiatric Psychiatric exam: Present: normal affect, normal mood. Absent: anxious - Skin Skin exam: Present: dry Additional comments: 2 cm wound with un-approximated edges over L-spine, minimal yellow purulent drainage, no dressing applied, no surrounding erythema, neighboring right flank incision C/D/I, previous left flank and L-spine incisions intact Infectious Disease CN: Results - Labs CBC & Chem 7: 09/24/16 07:29 09/24/16 07:29 - VTE Documentation of Mechanical Device: Intermittent pneumatic compression device Consult Discharge Plan - Plan Additional Instructions: Follow wound care instructions per nursing and wound care. Do not submerge the incisions in water until we tell you it is okay. We will give more instructions upon your discharge home. Referrals: NONE,PCP [Primary Care Provider] - - Attending Attestation I examined this patient and my medical decision-making was reviewed with the Resident Physician. I agree with the documented findings, disposition and treatment plan as described except to the extent set forth below. Addendum to original report dictated by resident physician. Please refer to physicians note for full detail. Briefly patient is a 46-year-old woman who has chronic lower extremity pain due to peripheral neuropathy who underwent a pain pump placement a year ago by orthopedics. Post that the patient had an infection of the surgical wound site and the pump was extracted. Patient was treated with vancomycin IV 2 weeks followed by doxycycline. Patient did well clinically with no relapse. August of this year patient underwent another pain pump placement. 2 weeks later patient had a knot in her back and when she was evaluated by the surgeon the wound has dehisced and there was some drainage. Patient was brought into the hospital for evaluation. A CT scan was done which shows questionable edema from the surgery versus phlegmon. Patient scheduled to go to surgery later today. Currently patient is asymptomatic and has no surgical. No fevers no issues. Physical exam is really just remarkable for about half an inch wound dehiscence with no active drainage and no surrounding erythema. My recommendations this time is to hold antibiotics to get a better yield of cultures from Intra-Op cultures. Patient has no source criteria and I think she should be okay with no antibiotics for another day or so until the surgery is done. In the meantime await surgery to see if the infection is the orifice cracking down to the hardware or for crosses the fascia. Patient with her kidney issues we would likely put her on daptomycin and cefepime. Once cultures finalize and we will discuss with the surgeon we will make further recommendation if we can continue with IV or switch to orals. While on daptomycin patient needs to be checked for weekly CK level. Discussed with nursing staff.
--- NOTE | 2016-09-23 15:36 | Anesthesia Evaluation PreOp ---
Date of Encounter: 09/24/16 Time of Encounter: 17:20 - Past History Planned Operation: Exploration, Possible Explant Spinal Cord Stimulator Cardiac History: HTN, Hyperlipidemia, Other (CAD - no stents) Pulmonary History: Smoker, Asthma, COPD SENIOR MATERIALS PLANNER History: Other (peripheral neuropathy, Migraines) Other Medical History: Renal (Stage IV), Diabetes Type II Anesthesia History: Past Anesthesia (hysterectomy, orthopedic, other, sinus surgery, other (BTL, polyp on vocal cords)) : No ([facility]) Alcohol Use: none Drug use: none Medications and Allergies Albuterol Sulfate [Proair Hfa] 2 puff IH Q4H PRN 09/24/15 [History] Aspirin Enteric Coated [Aspirin EC] 81 mg PO DAILY 09/24/15 [History] Ergocalciferol (VITAMIN D2) [Vitamin D2 (50,000 UNIT)] 50,000 unit PO HERNANDEZ [History] Famotidine [Pepcid] 20 mg PO BID 09/24/15 [History] Fenofibrate [Lofibra] 160 mg PO DAILY 09/24/15 [History] Isosorbide MONOnitrate (24 HR) [Imdur] 30 mg PO DAILY 09/24/15 [History] Montelukast [Singulair] 10 mg PO HS 09/24/15 [History] Roflumilast [Daliresp] 500 mcg PO DAILY 09/24/15 [History] SUMAtriptan succinate [Imitrex] 50 mg PO DAILY PRN 09/24/15 [History] Tizanidine HCl 4 mg PO TID PRN 09/24/15 [History] traMADol [Ultram] 50 mg PO TID PRN 09/24/15 [History] Metoprolol XL (24 HR) Succ [Toprol XL] 25 mg PO DAILY 10/19/15 [History] Oxaprozin [Daypro] 600 mg PO BID 10/19/15 [History] Docusate Sodium [Doc-Q-Lace] 200 mg PO HS 10/26/15 [History] EPINEPHrine [Epipen] 0.3 mg IM AD PRN 10/26/15 [History] Amitriptyline [Elavil] 25 mg PO HS 09/22/16 [History] Bacitracin OINT [Ak-Tracin] 1 appl TP BID 09/22/16 [History] Budesonide/Formoterol 80/4.5 [Symbicort 80/4.5] 2 puff IH BID 09/22/16 [History ] Cyanocobalamin (Vitamin B-12) [Vitamin B12] 1,000 mcg PO DAILY 09/22/16 [History ] Duloxetine HCl [Cymbalta] 60 mg PO DAILY 09/22/16 [History] Febuxostat [Uloric] 40 mg PO DAILY 09/22/16 [History] Folic Acid 1 mg PO DAILY 09/22/16 [History] Glimepiride [Amaryl] 4 mg PO BID 09/22/16 [History] Omeprazole [PriLOSEC] 40 mg PO DAILY 09/22/16 [History] Rosuvastatin [Crestor] 20 mg PO HS 09/22/16 [History] Tiotropium [Spiriva] 18 mcg IH 0700 09/22/16 [History] Allergies Bee Pollen Allergy (Verified 09/22/16 16:53) See Comments Erythromycin Base Allergy (Verified 09/22/16 16:53) Hives - Meds/Allergy Pre-op Review Medications Reviewed: Yes Allergies Reviewed: Yes Beta Blockers on Current Med List: No If Beta Blockers taken, Date/Time (Last Dose taken): None due to Low BP Anesthesia Results - Labs 09/23/16 05:57 09/23/16 13:11 Date of Study: 12/21/2015 Indications: Chest pain, Coronary artery disease Impressions: Normal LV chamber size, wall thickness, and systolic function. LVEF 55-60%. Normal right ventricular structure and function. Valvular function was not assessed on this limited study. Anesthesia Exam Vital Signs/O2 Sat, Most Current Temp Pulse Resp BP Pulse Ox 98.1 F 75 14 105/68 95 09/23/16 16:12 09/23/16 16:12 09/23/16 16:12 09/23/16 16:12 09/23/16 16:12 - HEENT Pupil (Motor): Pupils equal, EOMI Mallampati: III Teeth: Edentulous Denture Type: Upper: Complete, Lower: Complete Oral Opening: Greater than 3 - SENIOR MATERIALS PLANNER LOC: Oriented SENIOR MATERIALS PLANNER Motor: Normal RUE, Normal LUE, Normal RLE, Normal LLE, Normal Face SENIOR MATERIALS [employer]NER Sensory: Normal: RUE, LUE, RLE, LLE, Face - Cardiac Rhythm: Regular Murmur: None JVD: No Carotid Bruit: No - Pulmonary Breath Sounds: bilateral Clear Respiratory Effort: Symmetrical Anesthesia Assess/Plan ASA Score: 3 Modified Mekhi Scale for Level of Consciousness: Cooperative, oriented, and tranquil Anesthetic Plan: General Autologous Blood: Yes Monitoring Plan: Standard Monitors Recovery Plan: PACU
[2016-09-23] MEDS ORDERED: Bupivacaine/EPI 1:200k 0.25%PF 30 ML VIAL ONE (16:24)
[2016-09-23] MEDS ORDERED: *HR* Midazolam HCl 2 MG/2 ML VIAL ONE (16:59)
[2016-09-23] MEDS ORDERED: *HR* Succinylcholine 200 MG/10 ML VIAL IVP ONE (16:59)
[2016-09-23] MEDS ORDERED: Ketorolac 30 MG/ML VIAL ONE (16:59)
[2016-09-23] MEDS ORDERED: Lidocaine -MPF 2% 2 ML VIAL ONE (16:59)
[2016-09-23] MEDS ORDERED: Dexamethasone 4 MG/ML VIAL ONE (16:59)
[2016-09-23] MEDS ORDERED: *HR* FentaNYL (PF) 100 MCG/2 ML VIAL ONE ×3 (16:59→19:05)
[2016-09-23] MEDS ORDERED: Ondansetron 4 MG/2 ML VIAL ONE (16:59)
[2016-09-23] MEDS ORDERED: *HR* Rocuronium Bromide 50 MG/5 ML VIAL ONE (17:00)
[2016-09-23] MEDS ORDERED: *HR* Propofol 200 MG/20 ML VIAL IVP ONE ×2 (17:00→19:04)
--- NOTE | 2016-09-23 17:00 | History & Physical Report ---
Date of Encounter: 09/23/16 Time of Encounter: 16:59 24 Hour HP Update - Instructions Instructions: If the History and Physical is less than 30 days old and was completed prior to A.M. admission and or procedure and has NOT been updated on calendar day of procedure please complete this update prior to performing procedure. - Update Patient reports changes in Medical Condition: No Changes in examination, assessment, or condition: No Changes in Medication: No Preop tests/diagnostics Reviewed: Yes Surgery Remains Indicated: Yes Consent for Planned Operative Procedure(s) Verified: Yes
[2016-09-23] MEDS ORDERED: Lidocaine -MPF 4% 5 ML AMPUL ONE (17:22)
--- NOTE | 2016-09-23 17:25 | Discharge Summary ---
Outpatient Proc Discharge Plan - Plan Additional Instructions: Follow wound care instructions per nursing and wound care. Do not submerge the incisions in water until we tell you it is okay. We will give more instructions upon your discharge home. Home Medications: Albuterol Sulfate [Proair Hfa] 2 puff IH Q4H PRN 09/24/15 [History] Aspirin Enteric Coated [Aspirin EC] 81 mg PO DAILY 09/24/15 [History] Ergocalciferol (VITAMIN D2) [Vitamin D2 (50,000 UNIT)] 50,000 unit PO HERNANDEZ [History] Famotidine [Pepcid] 20 mg PO BID 09/24/15 [History] Fenofibrate [Lofibra] 160 mg PO DAILY 09/24/15 [History] Isosorbide MONOnitrate (24 HR) [Imdur] 30 mg PO DAILY 09/24/15 [History] Montelukast [Singulair] 10 mg PO HS 09/24/15 [History] Roflumilast [Daliresp] 500 mcg PO DAILY 09/24/15 [History] SUMAtriptan succinate [Imitrex] 50 mg PO DAILY PRN 09/24/15 [History] Tizanidine HCl 4 mg PO TID PRN 09/24/15 [History] traMADol [Ultram] 50 mg PO TID PRN 09/24/15 [History] Metoprolol XL (24 HR) Succ [Toprol XL] 25 mg PO DAILY 10/19/15 [History] Oxaprozin [Daypro] 600 mg PO BID 10/19/15 [History] Docusate Sodium [Doc-Q-Lace] 200 mg PO HS 10/26/15 [History] EPINEPHrine [Epipen] 0.3 mg IM AD PRN 10/26/15 [History] Amitriptyline [Elavil] 25 mg PO HS 09/22/16 [History] Bacitracin OINT [Ak-Tracin] 1 appl TP BID 09/22/16 [History] Budesonide/Formoterol 80/4.5 [Symbicort 80/4.5] 2 puff IH BID 09/22/16 [History ] Cyanocobalamin (Vitamin B-12) [Vitamin B12] 1,000 mcg PO DAILY 09/22/16 [History ] Duloxetine HCl [Cymbalta] 60 mg PO DAILY 09/22/16 [History] Febuxostat [Uloric] 40 mg PO DAILY 09/22/16 [History] Folic Acid 1 mg PO DAILY 09/22/16 [History] Glimepiride [Amaryl] 4 mg PO BID 09/22/16 [History] Omeprazole [PriLOSEC] 40 mg PO DAILY 09/22/16 [History] Rosuvastatin [Crestor] 20 mg PO HS 09/22/16 [History] Tiotropium [Spiriva] 18 mcg IH 0700 09/22/16 [History]
--- NOTE | 2016-09-23 17:26 | Pain Management Procedure Note ---
Date of procedure: 09/23/16 Procedure: PHYSICIAN: DR. MARK PREOPERATIVE DIAGNOSIS: Infected midline surgical wound, diabetic peripheral neuropathy POSTOPERATIVE DIAGNOSIS: same OPERATIVE PROCEDURE: Explantation of original pulse generator and two spinal cord stimulation leads COMPLICATIONS: None ANESTHESIA: GENERAL IMAGES SAVED: NONE SAFETY INFORMATION: Upon entering the procedure suite, we verified the following information with the patient: 1. The patient denies allergies to latex, iodine, steroids, and IV contrast. 2. The patient denies taking oral anticoagulants. PROCEDURE: The patient was correctly identified, all questions were answered, and informed , written consent was obtained. The patient was brought to the operating room, and general anesthesia was induced. The trachea was intubated routinely. The patient was placed prone on the fluoroscopy table. All pressure points were padded and checked. The patients back was marked with a surgical pen to show the midline over the spinal cord stimulating lead anchor site. Strict sterile technique was followed including surgical scrubbing and full body draping. I placed 10 mL of 0.25% bupivacaine with epinephrine along the midline incision. I then used a 15 blade scalpel to open the skin. A self-retaining retractor was used to spread the superficial soft tissues. I used small bursts of electrocautery to dissect the soft tissues away from the anchor sites. Blunt dissection was used once the anchors could be seen through the scar tissue. Wound cultures were taken and sent to the lab from the midline wound. I was careful not to electrify the leads themselves. All silk sutures were identified and removed entirely. All anchors were removed. The leads were gently pulled back from the epidural space. The leads came out of the epidural space intact. No resistance was noted while the leads were removed slowly from the epidural space. We then opened the original battery pocket. When the dural sutures were removed , a small collection of 4 mL of nonpurulent fluid was removed from the wound. This fluid was cultured. A 15 blade scalpel was used to open the skin here. Again, electrocautery was used to stop small oozing blood vessels. The subcutaneous tissues were dissected away with blunt dissection. I was careful not to touch the battery with the electrocautery device. The original battery was removed from the pocket intact. Both wounds were then debrided with a scalpel to remove a small amount of friable subcutaneous fat. Electrocautery was also used to remove larger areas of friable subcutaneous fat. The wounds were now irrigated copiously with three liters of normal saline containing bacitracin. Small areas of oozing were controlled with electrocautery No more areas of oozing blood were noted. The wounds were dry prior to dressing completion. Both wounds were closed as below. A wound VAC was placed in the midline wound The lateral wound was approximated with 3 simple interrupted 2-0 Prolene sutures. This wound was then covered with sterile 4 x 4 gauze and an ABD dressing. The patient tolerated the entire procedure well. No complications were noted. We made sure to provide both office and medical receptionist biller enrollment representative phone numbers in case the patient had any problems or concerns.
[2016-09-23] MEDS ORDERED: *HR* Dextrose 50 % in Water (Syg) 50 ML SYRINGE ONE (18:13)
[2016-09-23] MEDS ORDERED: *HR* Promethazine 25 MG/ML VIAL IVP PRN (18:18)
[2016-09-23] MEDS ORDERED: *HR* Labetalol 20 MG/4 ML SYRINGE IVP PRN (18:18)
[2016-09-23] MEDS: *HR* HYDROmorphone (PF) 1 MG/ML SYRINGE IVP PRN ×4 (19:43→20:06)
--- NOTE | 2016-09-23 20:29 | Anesthesia Evaluation Post Op ---
Date of Encounter: 09/23/16 Time of Encounter: 20:25 - Vital Signs Vital Signs: Vital Signs/O2 Sat/Glucose, Most Current Temp Pulse Resp BP Pulse Ox 09/23/16 20:15 77 14 115/78 94 09/23/16 20:05 98.9 F 78 14 131/80 96 09/23/16 19:55 81 14 129/82 97 09/23/16 19:45 79 14 125/75 97 09/23/16 19:35 97.6 F 86 14 129/88 96 - Lungs Lungs: Clear Ascult./Percussion - Airway Airway: Non-obstructed - Cardiovascular Regular Rate - Mental Status Mental Status: Alert & Oriented, Answers Appropriately - Pain Pain Scale: 0 - Nausea Vomiting Nausea Vomiting: Not Present - Hydration Hydration: Ice chips - Discharge PostOp Status: Transfer Patient to floor
[2016-09-23] MEDS ORDERED: Vancomycin 1,750 MG in D5% in Water 500 ML IVPB SCH (21:00)
[2016-09-23] MEDS ORDERED: *HR* OxyCODONE/APAP 5/325 TABLET PO PRN (21:47)
[2016-09-24] MEDS: Acetaminophen/Butalbital/CaffeineTABLET PO PRN ×3 (00:36→18:47)
[2016-09-24] MEDS: *HR* OxyCODONE/APAP 5/325 TABLET PO PRN ×4 (04:48→18:48)
[2016-09-24 07:57] LABS: Calcium 8.9 mg/dL (8.6-10.8); Potassium 4.6 mEq/L (3.5-4.5)
[2016-09-24 08:11] LABS: Hematocrit 35.1 % (35.3-44.9); Hemoglobin 11.1 g/dL (11.5-15.4); Mean Corpuscular HGB Conc 31.6 g/dL (31.6-35.5); Mean Corpuscular Hemoglobin 33.6 pg (28.0-33.3); Mean Corpuscular Volume 106.4 fL (83.0-100.0); Platelet Count 212 K/mcL (140-400); Red Cell Distribution Width 12.7 % (11.5-14.5)
[2016-09-24] MEDS: Insulin LISPRO 300 UNITS/3 ML VIAL SQ SCH ×4 (08:18→21:46)
--- NOTE | 2016-09-24 08:18 | Infectious Disease Progress No ---
Date of Encounter: 09/24/16 Time of Encounter: 08:17 - Assessment and Plan (1) Wound dehiscence, surgical Current Visit: Yes Status: Acute Postop day 1 status post explantation of original pulse generator and spinal cord stimulation leads. Wound to drain is in place. CT of the lumbar spine revealed ill-defined fluid adjacent to the paraspinal musculature along the midline, without a well-defined rim. Probably, this is postsurgical edema. The possibility of phlegmon is also considered. Although an abscess is not entirely excluded, it is considered less likely. Superficial Wound cultures were collected on 09/23/16 reveal Staphylococcus aureus Blood cultures were collected on 09/22/16 show no growth to date Patient was initially given Rocephin in the ED then transitioned to Clindamycin and Levaquin on 09/23/16 Wound was copiously irrigated intraoperatively with normal saline containing cefazolin on 09/23/16 Recommendations: Superficial wound cultures are positive for Staphylococcus aureus Intra-operative cultures collected, results pending. Start Cefepime 2g IV q12h and Daptomycin 4mg/kg IV q24h. Will adjust antibiotics as needed once intra-operative cultures resulted. Duration of antibiotics depends on clinical course. Continue to monitor for drug toxicity. We will continue to follow Qualifiers: Encounter type: initial encounter Qualified Code(s): T81.31XA - Disruption of external operation (surgical) wound, not elsewhere classified, initial encounter (2) CKD (chronic kidney disease) stage 3, GFR 30-59 ml/min Current Visit: No Status: Acute Nephrology following. Previous stage V renal failure following vancomycin administration. Will avoid/limit exposure to nephrotoxins (3) Diabetes mellitus Current Visit: Yes Status: Chronic Management per primary Qualifiers: Diabetes mellitus type: type 2 Diabetes mellitus complication status: with kidney complications Diabetes mellitus complication detail: with chronic kidney disease Diabetes mellitus retirement insulin use: with medical terminologist use Chronic kidney disease stage: stage 3 (moderate) Qualified Code(s): E11.22 - Type 2 diabetes mellitus with diabetic chronic kidney disease; N18.3 - Chronic kidney disease, stage 3 (moderate); Z79.4 - assisted (current) use of insulin (4) Diabetic neuropathy Current Visit: No Status: Chronic Continue current management Qualifiers: Diabetes mellitus type: type 2 Diabetes mellitus complication detail: diabetic polyneuropathy Qualified Code(s): E11.42 - Type 2 diabetes mellitus with diabetic polyneuropathy (5) Tobacco abuse Current Visit: No Status: Acute Patient declined a nicotine patch - Subjective Interval history: Patient seen and examined. Patient resting comfortably on left side on postop day 1 status post explantation of original pulse generator and spinal cord stimulation leads. Wound to drain is in place. Preliminary superficial wound cultures are positive for staph aureus. Patient reports pain level is controlled and denies fever, chills, chest pain, shortness of breath, abdominal pain, or leg edema. Boyfriend is a bedside during time of exam. Infect Dis PN-Objective Data - Labs CBC & Chem 7: 09/24/16 07:29 09/24/16 07:29 Labs: Laboratory Results - last 24 hr 09/23/16 09/24/16 09/24/16 21:03 07:29 07:29 WBC 7.3 RBC 3.30 L Hgb 11.1 L Hct 35.1 L MCV 106.4 H MCH 33.6 H MCHC 31.6 RDW 12.7 Plt Count 212 MPV 11.0 Sodium 139 Potassium 4.6 H Chloride 106 Carbon Dioxide 27 BUN 17 Creatinine 1.76 H Est GFR ( Amer) 38 L Est GFR (Non-Af Amer) 31 L BUN/Creatinine Ratio 10 Glucose 118 H POC Glucose 70 Calculated Osmolality 291 Calcium 8.9 Exam - Constitutional Vitals: Temp Pulse Resp BP Pulse Ox 98.4 F 81 16 114/68 95 09/24/16 06:50 09/24/16 06:50 09/24/16 06:50 09/24/16 06:50 09/24/16 06:50 General appearance: cooperative, mild distress, obese, no febrile - Head Head exam: Present: atraumatic, normal inspection, normocephalic - Eye Eye exam: Present: PERRL, conjuntiva pink - ENT ENT exam: Present: mucous membranes moist, normal oropharynx Additional comments: Fever blisters at angles of mouth bilaterally - Neck Neck exam: Present: normal inspection. Absent: lymphadenopathy, tenderness, thyromegaly - Respiratory Respiratory exam: Present: CTAB. Absent: rales, rhonchi, wheezes - Cardiovascular Cardiovascular exam: Present: RRR, +S1, +S2 - GI/Abdominal GI/Abdominal exam: Present: normal bowel sounds, soft. Absent: guarding, rebound - Extremities Exam Extremities exam: Present: full ROM, normal inspection. Absent: pedal edema, tenderness - Back Exam Back exam: Present: CVA tenderness (R), tenderness Additional comments: Wound drain in place with serosanguineous drainage, dressing over right flank C/ D/I. - Neurological Exam Neurological exam: Present: alert, oriented X3. Absent: altered - Psychiatric Psychiatric exam: Present: normal affect, normal mood - Skin Skin exam: Present: dry Additional comments: 4 cm Incision midline L-spine with drain in place, mild surrounding erythema Right flank dressing C/D/I, previous left flank and L-spine incisions intact - VTE Documentation of Mechanical Device: Intermittent pneumatic compression device Consult Discharge Plan - Plan Additional Instructions: Follow wound care instructions per nursing and wound care. Do not submerge the incisions in water until we tell you it is okay. We will give more instructions upon your discharge home. Referrals: NONE,PCP [Primary Care Provider] - - Attending Attestation I examined this patient and my medical decision-making was reviewed with the Resident Physician. I agree with the documented findings, disposition and treatment plan as described except to the extent set forth below.
[2016-09-24] MEDS: Fenofibrate 54 MG TABLET PO SCH (09:19)
[2016-09-24] MEDS: Aspirin Enteric Coated 81 MG Tablet PO SCH (09:19)
[2016-09-24] MEDS: Famotidine 20 MG TABLET PO SCH (09:19)
[2016-09-24] MEDS: Metoprolol XL (24 HR) Succ 25 MG TAB.ER.24H PO SCH (09:19)
[2016-09-24] MEDS: Isosorbide MONOnitrate (24 HR) 30 MG TAB.ER.24H PO SCH (09:19)
[2016-09-24] MEDS: Patient Taking Own Medication 1 EACH PO SCH (09:20)
[2016-09-24] MEDS ORDERED: Orphenadrine 60 MG/2 ML VIAL IVP ONE (09:28)
[2016-09-24] MEDS: Tiotropium 18 MCG inhalation IH SCH (11:06)
[2016-09-24] MEDS: Budesonide/Formoterol 80/4.5 MDI IH SCH ×2 (11:06→21:45)
--- NOTE | 2016-09-24 11:29 | Pain Management Consultation ---
Date of Encounter: 09/24/16 Time of Encounter: 13:00 Assessment and Plan (1) Hardware complicating wound infection Current Visit: No Status: Acute PLAN: 1. I would like Dr. Mcmullen to comment on the reliability of giving cymbalta to control diabetic peripheral neuropathy in light of her renal function. It is my understanding that she has been told by other providers that taking Cymbalta is not possible based on her kidney function. 2. Orders for wound care will be to change the midline wound VAC dressing every 2-3 days and change the lateral wound dressing daily. 3. We will set her up with home nursing care. 4. I once her to stay in the hospital until we have reliable wound cultures and tailor antibiotic therapy to those cultures. Cultures pending now. Initial results show staph. Very much appreciate infectious disease input here. 5. Continue oral Percocet on an as-needed basis for wound pain. 6. Plan to follow up with me as an outpatient to discuss further options for control of painful diabetic peripheral neuropathy. The assessment and plan as outlined above was discussed with the patient and/or family members who expressed understanding and agreement. All questions were answered. Qualifiers: Encounter type: initial encounter Qualified Code(s): T84.7XXA - Infection and inflammatory reaction due to other internal orthopedic prosthetic devices, implants and grafts, initial encounter History of Present Illness Chief complaint: back pain HPI: Ms. Calvo is a 46 year old female who had a spinal cord stimulator system implanted. This is actually her second implant. The implant was found to be infected on close postsurgical follow-up. The midline wound was actually coming apart and showed an area of purulent drainage. The stimulator was taken out yesterday by myself. Today, Madeline complains of mild pain in the back at the midline wound. She denies fever, chills, nausea. Headache has resolved. She has felt the return of tingling, burning pain in her lower limbs. The pain starts at her waist and proceeds down her legs in the front and back side of her legs. Pain goes all the way to the feet. This pain has been present for multiple years and is secondary to long-standing diabetes. The pain score of recent is 10/10. When stimulation therapy was ongoing with an implanted stimulator, her pain score was 0/10. Past Med Surg Social Fam HX - Past Medical History Medical history: asthma, COPD, diabetes, GERD, hyperlipidemia, migraine, RA, renal disease, other Psychiatric history: anxiety, depression, panic disorder - Past Surgical History Surgical History: hysterectomy, orthopedic, other, sinus surgery, other (BTL, polyp on vocal cords) - Social History Smoking Status: Current every day smoker Packs per day: 1/2 pack Smokeless Tobacco Status: No Alcohol use: none Drug use: none - Family History Father Hx Family Cardiac Disorders: Yes (MT) Hx Family Endocrine Disorder: Yes (Diabetes) Grandfather Hx Family Respiratory Disorders: Yes (Emphysema) Medications and Allergies Albuterol Sulfate [Proair Hfa] 2 puff IH Q4H PRN 09/24/15 [History] Aspirin Enteric Coated [Aspirin EC] 81 mg PO DAILY 09/24/15 [History] Ergocalciferol (VITAMIN D2) [Vitamin D2 (50,000 UNIT)] 50,000 unit PO HERNANDEZ [History] Famotidine [Pepcid] 20 mg PO BID 09/24/15 [History] Fenofibrate [Lofibra] 160 mg PO DAILY 09/24/15 [History] Isosorbide MONOnitrate (24 HR) [Imdur] 30 mg PO DAILY 09/24/15 [History] Montelukast [Singulair] 10 mg PO HS 09/24/15 [History] Roflumilast [Daliresp] 500 mcg PO DAILY 09/24/15 [History] SUMAtriptan succinate [Imitrex] 50 mg PO DAILY PRN 09/24/15 [History] Tizanidine HCl 4 mg PO TID PRN 09/24/15 [History] traMADol [Ultram] 50 mg PO TID PRN 09/24/15 [History] Metoprolol XL (24 HR) Succ [Toprol XL] 25 mg PO DAILY 10/19/15 [History] Oxaprozin [Daypro] 600 mg PO BID 10/19/15 [History] Docusate Sodium [Doc-Q-Lace] 200 mg PO HS 10/26/15 [History] EPINEPHrine [Epipen] 0.3 mg IM AD PRN 10/26/15 [History] Amitriptyline [Elavil] 25 mg PO HS 09/22/16 [History] Bacitracin OINT [Ak-Tracin] 1 appl TP BID 09/22/16 [History] Budesonide/Formoterol 80/4.5 [Symbicort 80/4.5] 2 puff IH BID 09/22/16 [History ] Cyanocobalamin (Vitamin B-12) [Vitamin B12] 1,000 mcg PO DAILY 09/22/16 [History ] Duloxetine HCl [Cymbalta] 60 mg PO DAILY 09/22/16 [History] Febuxostat [Uloric] 40 mg PO DAILY 09/22/16 [History] Folic Acid 1 mg PO DAILY 09/22/16 [History] Glimepiride [Amaryl] 4 mg PO BID 09/22/16 [History] Omeprazole [PriLOSEC] 40 mg PO DAILY 09/22/16 [History] Rosuvastatin [Crestor] 20 mg PO HS 09/22/16 [History] Tiotropium [Spiriva] 18 mcg IH 0700 09/22/16 [History] Allergies Bee Pollen Allergy (Verified 09/22/16 16:53) See Comments Erythromycin Base Allergy (Verified 09/22/16 16:53) Hives Review of Systems - Constitutional Constitutional ROS IM: no photophobia, no phonophobia, no daytime sleepiness, no fever(s), no stops breathing during sleep - EENT Nose, mouth and throat: no headache(s), no neck pain, no neck trauma - Cardiovascular Cardiovascular ROS: no chest pain, no leg edema, no lightheadedness - Respiratory Respiratory: no pain on inspiration, no pain with cough - Gastrointestinal Gastrointestinal: no abdominal pain, no constipation, no diarrhea, no heartburn - Genitourinary Genitourinary ROS: no difficulty urinating, no flank pain, no urinary hesitancy - Musculoskeletal Musculoskeletal ROS: no muscle weakness, no numbness, no radiating pain into limb, no tingling - Integumentary Integumentary: no erythema, no lesions, no swelling - Neurological Neurological ROS: no abnormal gait, no behavioral changes, no focal weakness, no radicular pain - Psychiatric Psychiatric general: no anxiety, no confusion, no depression - Hematologic/Lymphatic Hematologic/Lymphatic pediatric: no easy bleeding, no easy bruising Physical Exam Initial Vital Signs Temp Pulse Resp BP Pulse Ox 98.1 F 80 18 124/83 100 09/22/16 16:50 09/22/16 16:50 09/22/16 16:50 09/22/16 16:50 09/22/16 16:50 - Additional Findings Constitutional: well appearing, well dressed, well groomed Skin: Midline wound has intact wound vacuum system. Skin edges are pink and show mild edema. Wound VAC drainage is about 10 ml of reddish fluid. No napoleon blood. Lateral wound is showing mild pink drainage. The ABD dressing is not soaked. Cranial Nerves: CN II through X12 grossly intact HEENT: NCAT Cardiac: peripheral pulses equal and symmetric at radial arteries. RRR Respiratory: quiet, normal respiratory pattern. CTA ABD: no distention MSK: normal gait, no kyphosis Neuro: hypesthesia noted in both lower limbs. I have reviewed and agree with information documented in the scribed documentation, ROS, patient medications, allergies, medical history, surgical history, social history, and family history. Results - Labs 09/24/16 07:29 09/24/16 07:29 Abnormal lab results RBC 3.30 M/mcL (3.82-4.97) L 09/24/16 07:29 Hgb 11.1 g/dL (11.5-15.4) L 09/24/16 07:29 Hct 35.1 % (35.3-44.9) L 09/24/16 07:29 MCV 106.4 fL (83.0-100.0) H 09/24/16 07:29 MCH 33.6 pg (28.0-33.3) H 09/24/16 07:29 Nucleated RBCs/100 WBC 0.2 /100 WBC (0) H 09/23/16 05:57 ESR 22 mm/hr (0-15) H 09/22/16 18:47 APTT 24.8 Seconds (26.0-36.0) L 09/23/16 13:11 Potassium 4.6 mEq/L (3.5-4.5) H 09/24/16 07:29 Creatinine 1.76 mg/dL (0.57-1.11) H 09/24/16 07:29 Est GFR ( Amer) 38 (> 60) L 09/24/16 07:29 Est GFR (Non-Af Amer) 31 (> 60) L 09/24/16 07:29 Glucose 118 mg/dL (70-99) H 09/24/16 07:29 Diabetes panel 09/24/16 Range/Units 07:29 Sodium 139 (136-145) mEq/L Potassium 4.6 H (3.5-4.5) mEq/L Chloride 106 (98-109) mEq/L Carbon Dioxide 27 (19-29) mEq/L BUN 17 (7-20) mg/dL Creatinine 1.76 H (0.57-1.11) mg/dL Glucose 118 H (70-99) mg/dL Calcium 8.9 (8.6-10.8) mg/dL Calcium panel 09/24/16 Range/Units 07:29 Calcium 8.9 (8.6-10.8) mg/dL Pituitary panel 09/24/16 Range/Units 07:29 Sodium 139 (136-145) mEq/L Potassium 4.6 H (3.5-4.5) mEq/L Chloride 106 (98-109) mEq/L Carbon Dioxide 27 (19-29) mEq/L BUN 17 (7-20) mg/dL Creatinine 1.76 H (0.57-1.11) mg/dL Glucose 118 H (70-99) mg/dL Calcium 8.9 (8.6-10.8) mg/dL Adrenal panel 09/24/16 Range/Units 07:29 Sodium 139 (136-145) mEq/L Potassium 4.6 H (3.5-4.5) mEq/L Chloride 106 (98-109) mEq/L Carbon Dioxide 27 (19-29) mEq/L BUN 17 (7-20) mg/dL Creatinine 1.76 H (0.57-1.11) mg/dL Glucose 118 H (70-99) mg/dL Calcium 8.9 (8.6-10.8) mg/dL All other labs normal. - VTE Documentation of Mechanical Device: Intermittent pneumatic compression device Consult Discharge Plan - Plan Additional Instructions: Follow wound care instructions per nursing and wound care. Do not submerge the incisions in water until we tell you it is okay. We will give more instructions upon your discharge home. Referrals: NONE,PCP [Primary Care Provider] -
[2016-09-24] MEDS: DAPTOmycin 450 MG in 0.9 % Sodium Chloride 100 ML IVPB SCH (13:47)
[2016-09-24] MEDS: Cefepime HCl 2,000 MG in D5% in Water (Mini-Bag+) 100 ML IVPB SCH (17:23)
--- NOTE | 2016-09-24 19:53 | Internal Med Progress Note ---
Date of Encounter: 09/24/16 Time of Encounter: 08:30 - Assessment and plan (1) Infection of spinal cord stimulator Current Visit: Yes Status: Acute Assessment and plan: Pt is s/p removal of stimulator. She is currently on IV abx. ID is following. Awaiting final culture results for further plan. Qualifiers: Encounter type: subsequent encounter Qualified Code(s): T85.733D - Infection and inflammatory reaction due to implanted electronic neurostimulator of spinal cord, electrode (lead), subsequent encounter (2) Diabetes mellitus Current Visit: Yes Status: Chronic Assessment and plan: Continue current medications and coverage. Qualifiers: Diabetes mellitus type: type 2 Diabetes mellitus complication status: with kidney complications Diabetes mellitus complication detail: with chronic kidney disease Diabetes mellitus care home insulin use: with termite exterminator use Chronic kidney disease stage: stage 3 (moderate) Qualified Code(s): E11.22 - Type 2 diabetes mellitus with diabetic chronic kidney disease; N18.3 - Chronic kidney disease, stage 3 (moderate); Z79.4 - extermination inspector (current) use of insulin (3) COPD with asthma Current Visit: No Status: Chronic Assessment and plan: Continue home medications. Appears to be controlled. (4) Tobacco abuse Current Visit: No Status: Acute Assessment and plan: Cessation counselling. - Subjective Interval history: Ms. Calvo is currently admitted for presumed infected spinal stimulator. She remains moderate to high risk due to potential for worsening infectious issues. Ms. Calvo feels OK at this time. She is tolerating abx. No fever or chills. Hardware removed last night. No significant pain in legs at this time. - Constitutional Vitals: Temp Pulse Resp BP Pulse Ox 97.8 F 64 16 98/53 97 09/24/16 15:11 09/24/16 15:11 09/24/16 15:11 09/24/16 15:11 09/24/16 15:11 General appearance: Present: A&O X 3, answers questions appropriately - Head Head exam: Present: normocephalic - Eye Eye exam: Present: EOMI, conjuntiva pink - ENT ENT exam: Present: mucous membranes moist - Respiratory Respiratory exam: Present: CTAB. Absent: rales, rhonchi, wheezes - Cardiovascular Cardiovascular exam: Present: RRR. Absent: tachycardia - GI/Abdominal GI/Abdominal exam: Present: rigid. Absent: tenderness - Extremities Exam Extremities exam: Present: warm. Absent: tenderness - Neurological Exam Neurological exam: Present: alert, oriented X3 - Skin Skin exam: Present: warm. Absent: rash Internal Medicine: Result - Labs CBC & Chem 7: 09/24/16 07:29 09/24/16 07:29 Labs: Short CBC 09/24/16 Range/Units 07:29 WBC 7.3 (4.3-11.1) K/mcL Hgb 11.1 L (11.5-15.4) g/dL Hct 35.1 L (35.3-44.9) % Plt Count 212 (140-400) K/mcL BMP 09/24/16 07:29 Sodium 139 Potassium 4.6 H Chloride 106 Carbon Dioxide 27 BUN 17 Creatinine 1.76 H Glucose 118 H Calcium 8.9 - ABG Interpretation ABG results: PT/INR, D-dimer PT 11.3 Seconds (9.4-12.1) 09/23/16 13:11 - VTE Documentation of Mechanical Device: Intermittent pneumatic compression device Consult Discharge Plan - Plan Additional Instructions: Follow wound care instructions per nursing and wound care. Do not submerge the incisions in water until we tell you it is okay. We will give more instructions upon your discharge home. Referrals: NONE,PCP [Primary Care Provider] -
--- NOTE | 2016-09-24 20:16 | Electrocardiograph Report ---
[place] [id number] Test Date: 2016-09-23 Pat Name: Madeline Calvo Department: 114 Room: [facility] Gender: F Optical Technician: : 1970 Requested By: Jean Paul Ramsey Order Number: [id number] Reading MD: Beka Waggoner MD Measurements Intervals [place] Rate: 73 P: 23 LA: 163 QRS: 19 QRSD: 81 T: 20 QT: 382 QTc: 407 Interpretive Statements SINUS RHYTHM Electronically Signed On 09-24-2016 20:15:03 EDT by Beka Waggoner MD
--- NOTE | 2016-09-24 20:16 | Internal Med Progress Note ---
<GuillaumeEduardo Roshan - Last Filed: 09/24/16 20:13> Date of Encounter: 09/24/16 Time of Encounter: 09:50 - Assessment and plan (1) Infection of spinal cord stimulator Current Visit: Yes Status: Acute Assessment and plan: s/p removal of spinal cord stimulator Final lood culture and surgical cultures pending ID following - appreciate recommendations - continue antibiotics as per ID Plan at discharge is home health and continued antibiotics. Qualifiers: Encounter type: subsequent encounter Qualified Code(s): T85.733D - Infection and inflammatory reaction due to implanted electronic neurostimulator of spinal cord, electrode (lead), subsequent encounter (2) CKD stage 3 secondary to diabetes Current Visit: Yes Status: Chronic Assessment and plan: Cr at baseline. Continue to monitor. Avoid nephrotoxic drugs. (3) Diabetes mellitus Current Visit: Yes Status: Chronic Assessment and plan: Glucose under control. Continue SSI. Qualifiers: Diabetes mellitus type: type 2 Diabetes mellitus complication status: with kidney complications Diabetes mellitus complication detail: with chronic kidney disease Diabetes mellitus ocean transportation intermediary insulin use: with ocean transportation intermediary use Chronic kidney disease stage: stage 3 (moderate) Qualified Code(s): E11.22 - Type 2 diabetes mellitus with diabetic chronic kidney disease; N18.3 - Chronic kidney disease, stage 3 (moderate); Z79.4 - long term acute care registered nurse (current) use of insulin - Subjective Interval history: Patient seen and examined. Reports her back pain is under control, but she has a posterior headache. Denies chest pain, dyspnea, cough, N/V/D, dysuria, or leg edema. - Constitutional Vitals: Temp Pulse Resp BP Pulse Ox 97.8 F 64 16 98/53 97 09/24/16 15:11 09/24/16 15:11 09/24/16 15:11 09/24/16 15:11 09/24/16 15:11 General appearance: Present: A&O X 3, no acute distress, answers questions appropriately - Head Head exam: Present: atraumatic, normocephalic - Eye Eye exam: Present: EOMI, sclera anicteric - ENT ENT exam: Present: mucous membranes moist - Respiratory Respiratory exam: Present: CTAB. Absent: rales, rhonchi, wheezes - Cardiovascular Cardiovascular exam: Present: RRR, +S1, +S2. Absent: diastolic murmur, systolic murmur - GI/Abdominal GI/Abdominal exam: Present: normal bowel sounds, soft. Absent: distended, rigid , tenderness - Extremities Exam Extremities exam: Present: warm. Absent: calf tenderness, joint swelling, pedal edema - Neurological Exam Neurological exam: Present: alert, CN II-XII intact, oriented X3, no focal deficits Internal Medicine: Result - Labs CBC & Chem 7: 09/24/16 07:29 09/24/16 07:29 Labs: Short CBC 09/24/16 Range/Units 07:29 WBC 7.3 (4.3-11.1) K/mcL Hgb 11.1 L (11.5-15.4) g/dL Hct 35.1 L (35.3-44.9) % Plt Count 212 (140-400) K/mcL BMP 09/24/16 07:29 Sodium 139 Potassium 4.6 H Chloride 106 Carbon Dioxide 27 BUN 17 Creatinine 1.76 H Glucose 118 H Calcium 8.9 - ABG Interpretation ABG results: PT/INR, D-dimer PT 11.3 Seconds (9.4-12.1) 09/23/16 13:11 - VTE Documentation of Mechanical Device: Intermittent pneumatic compression device Consult Discharge Plan - Plan Additional Instructions: Follow wound care instructions per nursing and wound care. Do not submerge the incisions in water until we tell you it is okay. We will give more instructions upon your discharge home. Referrals: NONE,PCP [Non-Partnered Physician] - <Jean Paul Ramsey - Last Filed: 09/25/16 16:29> Date of Encounter: 09/25/16 - Assessment and plan (1) Infection of spinal cord stimulator Current Visit: Yes Status: Acute Qualifiers: Encounter type: subsequent encounter Qualified Code(s): T85.733D - Infection and inflammatory reaction due to implanted electronic neurostimulator of spinal cord, electrode (lead), subsequent encounter (2) Diabetes mellitus Current Visit: Yes Status: Chronic Qualifiers: Diabetes mellitus type: type 2 Diabetes mellitus complication status: with kidney complications Diabetes mellitus complication detail: with chronic kidney disease Diabetes mellitus halfway insulin use: with ocean transportation intermediary use Chronic kidney disease stage: stage 3 (moderate) Qualified Code(s): E11.22 - Type 2 diabetes mellitus with diabetic chronic kidney disease; N18.3 - Chronic kidney disease, stage 3 (moderate); Z79.4 - long term acute care registered nurse (current) use of insulin (3) COPD with asthma Current Visit: No Status: Chronic (4) Tobacco abuse Current Visit: No Status: Acute - Constitutional Vitals: Temp Pulse Resp BP Pulse Ox 98.5 F 73 16 107/63 95 09/25/16 14:29 09/25/16 14:29 09/25/16 14:29 09/25/16 14:29 09/25/16 14:29 Internal Medicine: Result - Labs CBC & Chem 7: 09/25/16 06:20 09/25/16 06:20 Labs: Short CBC 09/25/16 Range/Units 06:20 WBC 6.9 (4.3-11.1) K/mcL Hgb 10.8 L (11.5-15.4) g/dL Hct 34.5 L (35.3-44.9) % Plt Count 204 (140-400) K/mcL BMP 09/25/16 06:20 Sodium 138 Potassium 4.8 H Chloride 107 Carbon Dioxide 25 BUN 17 Creatinine 1.70 H Glucose 203 H Calcium 8.7 - ABG Interpretation ABG results: PT/INR, D-dimer PT 11.3 Seconds (9.4-12.1) 09/23/16 13:11 - Attending Attestation Please see my note of this date.
[2016-09-24] MEDS: *HR* Morphine 2 MG/ML SYRINGE IVP PRN (22:06)
[2016-09-25] MEDS: *HR* OxyCODONE/APAP 5/325 TABLET PO PRN ×5 (00:41→20:56)
[2016-09-25] MEDS: Cefepime HCl 2,000 MG in D5% in Water (Mini-Bag+) 100 ML IVPB SCH (05:24)
[2016-09-25 06:52] LABS: Calcium 8.7 mg/dL (8.6-10.8); Potassium 4.8 mEq/L (3.5-4.5)
[2016-09-25] MEDS: *HR* Morphine 2 MG/ML SYRINGE IVP PRN ×3 (06:59→16:49)
[2016-09-25 07:00] LABS: Hematocrit 34.5 % (35.3-44.9); Hemoglobin 10.8 g/dL (11.5-15.4); Mean Corpuscular HGB Conc 31.3 g/dL (31.6-35.5); Mean Corpuscular Hemoglobin 33.1 pg (28.0-33.3); Mean Corpuscular Volume 105.8 fL (83.0-100.0); Mean Platelet Volume 11.2 fL (9.4-12.4); Platelet Count 204 K/mcL (140-400); Red Blood Count 3.26 M/mcL (3.82-4.97); Red Cell Distribution Width 12.4 % (11.5-14.5)
[2016-09-25] MEDS: Budesonide/Formoterol 80/4.5 MDI IH SCH ×2 (08:11→21:51)
[2016-09-25] MEDS: Tiotropium 18 MCG inhalation IH SCH (08:12)
--- NOTE | 2016-09-25 08:14 | Infectious Disease Progress No ---
Date of Encounter: 09/25/16 Time of Encounter: 08:13 - Assessment and Plan (1) Wound dehiscence, surgical Current Visit: Yes Status: Acute Postop day 2 status post explantation of original pulse generator and spinal cord stimulation leads. Wound to drain is in place. CT of the lumbar spine revealed ill-defined fluid adjacent to the paraspinal musculature along the midline, without a well-defined rim. Probably, this is postsurgical edema. The possibility of phlegmon is also considered. Although an abscess is not entirely excluded, it is considered less likely. Superficial Wound cultures were collected on 09/23/16 reveal Staphylococcus aureus Blood cultures were collected on 09/22/16 show no growth to date Patient was initially given Rocephin in the ED then transitioned to Clindamycin and Levaquin on 09/23/16 Wound was copiously irrigated intraoperatively with normal saline containing cefazolin on 09/23/16 Recommendations: Superficial wound cultures are positive for Staphylococcus aureus with multiple drug sensitivities Intra-operative cultures collected, results showed gram-positive cocci ( previous MSSA in the past) Continue Cefepime 2g IV q12h and Daptomycin 4mg/kg IV q24h. Will adjust antibiotics as needed once intra-operative cultures resulted. Duration of antibiotics depends on clinical course. Continue to monitor for drug toxicity. We will continue to follow Qualifiers: Encounter type: initial encounter Qualified Code(s): T81.31XA - Disruption of external operation (surgical) wound, not elsewhere classified, initial encounter (2) CKD (chronic kidney disease) stage 3, GFR 30-59 ml/min Current Visit: No Status: Acute Nephrology following. Previous stage V renal failure following vancomycin administration. Will avoid/limit exposure to nephrotoxins (3) Diabetes mellitus Current Visit: Yes Status: Chronic Management per primary Qualifiers: Diabetes mellitus type: type 2 Diabetes mellitus complication status: with kidney complications Diabetes mellitus complication detail: with chronic kidney disease Diabetes mellitus longwall machine operator helper insulin use: with longwall machine operator helper use Chronic kidney disease stage: stage 3 (moderate) Qualified Code(s): E11.22 - Type 2 diabetes mellitus with diabetic chronic kidney disease; N18.3 - Chronic kidney disease, stage 3 (moderate); Z79.4 - terminal clerk (current) use of insulin (4) Diabetic neuropathy Current Visit: No Status: Chronic Continue current management Qualifiers: Diabetes mellitus type: type 2 Diabetes mellitus complication detail: diabetic polyneuropathy Qualified Code(s): E11.42 - Type 2 diabetes mellitus with diabetic polyneuropathy (5) Tobacco abuse Current Visit: No Status: Acute Patient declined a nicotine patch - Subjective Interval history: Patient seen and examined. Patient resting comfortably in bed laying on right side on postop day 2 status post explantation of original pulse generator and spinal cord stimulation leads. Wound drain is in place. Superficial wound cultures are positive for staph aureus and deep wound cultures are positive for gram positive cocci. Patient reports pain level is controlled and denies fever, chills, chest pain, shortness of breath, abdominal pain, or leg edema. Infect Dis PN-Objective Data - Labs CBC & Chem 7: 09/25/16 06:20 09/25/16 06:20 Labs: Laboratory Results - last 24 hr 09/23/16 09/24/16 09/24/16 22:50 07:43 11:24 WBC RBC Hgb Hct MCV MCH MCHC RDW Plt Count MPV Sodium Potassium Chloride Carbon Dioxide BUN Creatinine Est GFR ( Amer) Est GFR (Non-Af Amer) BUN/Creatinine Ratio Glucose POC Glucose 94 H 120 H 163 H Calculated Osmolality Calcium 09/24/16 09/24/16 09/25/16 17:00 20:52 06:20 WBC 6.9 RBC 3.26 L Hgb 10.8 L Hct 34.5 L MCV 105.8 H MCH 33.1 MCHC 31.3 L RDW 12.4 Plt Count 204 MPV 11.2 Sodium Potassium Chloride Carbon Dioxide BUN Creatinine Est GFR ( Amer) Est GFR (Non-Af Amer) BUN/Creatinine Ratio Glucose POC Glucose 218 H 189 H Calculated Osmolality Calcium 09/25/16 09/25/16 06:20 07:24 WBC RBC Hgb Hct MCV MCH MCHC RDW Plt Count MPV Sodium 138 Potassium 4.8 H Chloride 107 Carbon Dioxide 25 BUN 17 Creatinine 1.70 H Est GFR ( Amer) 39 L Est GFR (Non-Af Amer) 32 L BUN/Creatinine Ratio 10 Glucose 203 H POC Glucose 192 H Calculated Osmolality 293 Calcium 8.7 Cultures: Microbiology 09/23/16 13:00 Back Wound Culture - Final Staphylococcus aureus 09/23/16 18:52 Incision Wound Culture - Preliminary Gram Positive Cocci 09/23/16 18:52 Incision Wound Culture - Preliminary No growth. 09/23/16 18:52 Other-Specify in Comments Acid Fast Stain - Final 09/23/16 18:01 Other-Specify in Comments Acid Fast Stain - Final 09/22/16 21:02 Peripheral Venipuncture Blood Culture - Preliminary No growth. 09/22/16 21:00 Peripheral Venipuncture Blood Culture - Preliminary No growth. Exam - Constitutional Vitals: Temp Pulse Resp BP Pulse Ox 98.3 F 64 16 108/64 99 09/25/16 06:38 09/25/16 06:38 09/25/16 06:38 09/25/16 06:38 09/25/16 06:38 General appearance: cooperative, no acute distress, obese, no febrile - Head Head exam: Present: atraumatic, normal inspection, normocephalic - Eye Eye exam: Present: PERRL, conjuntiva pink - ENT ENT exam: Present: mucous membranes moist, normal oropharynx - Neck Neck exam: Present: normal inspection. Absent: lymphadenopathy, tenderness, thyromegaly - Respiratory Respiratory exam: Present: CTAB. Absent: chest wall tenderness, rales, rhonchi , wheezes - Cardiovascular Cardiovascular exam: Present: RRR, +S1, +S2 - GI/Abdominal GI/Abdominal exam: Present: normal bowel sounds, soft. Absent: guarding, rebound - Extremities Exam Extremities exam: Present: normal inspection. Absent: pedal edema - Back Exam Back exam: Absent: CVA tenderness (R) Additional comments: Wound drain in place with decreased serosanguineous drainage, dressing over right flank C/D/I. - Neurological Exam Neurological exam: Present: alert, oriented X3. Absent: altered - Psychiatric Psychiatric exam: Present: normal affect, normal mood - Skin Additional comments: 4 cm Incision midline L-spine with drain in place, mild surrounding erythema Right flank dressing C/D/I, previous left flank and L-spine incisions intact - VTE Documentation of Mechanical Device: Intermittent pneumatic compression device Consult Discharge Plan - Plan Additional Instructions: Follow wound care instructions per nursing and wound care. Do not submerge the incisions in water until we tell you it is okay. We will give more instructions upon your discharge home. Referrals: NONE,PCP [Non-Partnered Physician] - - Attending Attestation I examined this patient and my medical decision-making was reviewed with the Resident Physician. I agree with the documented findings, disposition and treatment plan as described except to the extent set forth below.
[2016-09-25] MEDS: Insulin LISPRO 300 UNITS/3 ML VIAL SQ SCH ×3 (08:28→16:54)
[2016-09-25] MEDS: Isosorbide MONOnitrate (24 HR) 30 MG TAB.ER.24H PO SCH (08:30)
[2016-09-25] MEDS: Metoprolol XL (24 HR) Succ 25 MG TAB.ER.24H PO SCH (08:30)
[2016-09-25] MEDS: Fenofibrate 54 MG TABLET PO SCH (08:30)
[2016-09-25] MEDS: Patient Taking Own Medication 1 EACH PO SCH (08:31)
[2016-09-25] MEDS: Famotidine 20 MG TABLET PO SCH (08:31)
[2016-09-25] MEDS: Aspirin Enteric Coated 81 MG Tablet PO SCH (08:31)
--- NOTE | 2016-09-25 10:33 | Nephrology Progress Note ---
Date of Encounter: 09/25/16 Time of Encounter: 10:26 - Assessment and Plan (1) CKD (chronic kidney disease) stage 3, GFR 30-59 ml/min Current Visit: No Status: Acute Kidney function stable, continues at baseline Will need BMP 2 weeks after discharge Follow up with Dr Mcmullen in 2 months (2) Infection of spinal cord stimulator Current Visit: Yes Status: Acute per primary team Qualifiers: Encounter type: subsequent encounter Qualified Code(s): T85.733D - Infection and inflammatory reaction due to implanted electronic neurostimulator of spinal cord, electrode (lead), subsequent encounter Subjective Principal diagnosis: CKD stage 3, infection of spinal cork stimulator Interval history: Patient seen and examined. Sleeping soundly, family at bedside Objective - Vital Signs Vital signs: Vital Signs Temp Pulse Resp BP Pulse Ox 09/25/16 08:13 18 97 09/25/16 06:38 98.3 F 64 16 108/64 99 09/25/16 04:45 98.5 F 68 106/68 99 09/25/16 00:22 97.3 F L 18 104/66 98 09/24/16 21:49 15 94 09/24/16 20:11 98.7 F 82 16 105/67 98 09/24/16 15:11 97.8 F 64 16 98/53 97 09/24/16 11:06 18 94 Intake and Output 09/24/16 09/25/16 09/25/16 23:59 07:59 15:59 Intake Total 1260 / 1260 100 / 100 800 / 800 Output Total 40 / 40 Balance 1220 / 1220 100 / 100 800 / 800 Intake: IV Fluids 100 / 100 100 / 100 Maxipime 2,000 MG In 100 / 100 100 / 100 Dextrose 5% (Minibag+) 100 ML 100 ML @ 200 mls/ hr IVPB Q12HR MAGUE Rx#: [id number] Oral 1160 / 1160 800 / 800 Output: Wound Drainage 40 / 40 Medial Back 40 / 40 Other: Meal Dinner Breakfast Percent of Meal Consumed 100% 75% # Voids 2 1 Weight 112.1 kg Blood Glucose* 189 192 Patient Weight 09/25/16 23:59 Weight 112.1 kg - General Appearance General appearance: Present: obese EENT: Present: ATNC Neck: Present: supple Respiratory: Present: clear Cardiology: Present: edema, normal S1, normal S2 Gastrointestinal: Present: no guarding Integumentary: Present: warm and dry - Lab 09/25/16 06:20 09/25/16 06:20 Most recent lab results Calcium 8.7 mg/dL (8.6-10.8) 09/25/16 06:20 Magnesium 1.7 mg/dL (1.6-2.6) 09/23/16 09:34 - VTE Documentation of Mechanical Device: Intermittent pneumatic compression device Consult Discharge Plan - Plan Additional Instructions: Follow wound care instructions per nursing and wound care. Do not submerge the incisions in water until we tell you it is okay. We will give more instructions upon your discharge home. Referrals: NONE,PCP [Primary Care Provider] -
--- NOTE | 2016-09-25 10:48 | Internal Med Progress Note ---
<Eduardo Galaviz Roshan - Last Filed: 09/25/16 12:52> Date of Encounter: 09/25/16 Time of Encounter: 09:37 - Assessment and plan (1) Infection of spinal cord stimulator Current Visit: Yes Status: Acute Assessment and plan: POD #2 s/p removal of spinal cord stimulator Pain increased - on Percocet, morphine, and tramadol Surgical culture pending - preliminary gram positive cocci Blood cultures- no growth to date Wound culture - staph. aureus ID following - appreciate recommendations - continue antibiotics as per ID Plan at discharge is home health and continued antibiotics Qualifiers: Encounter type: subsequent encounter Qualified Code(s): T85.733D - Infection and inflammatory reaction due to implanted electronic neurostimulator of spinal cord, electrode (lead), subsequent encounter (2) CKD stage 3 secondary to diabetes Current Visit: Yes Status: Chronic Assessment and plan: Cr at baseline. Continue to monitor. Avoid nephrotoxic drugs. (3) Diabetes mellitus Current Visit: Yes Status: Chronic Assessment and plan: Glucose under control. Continue SSI. Qualifiers: Diabetes mellitus type: type 2 Diabetes mellitus complication status: with kidney complications Diabetes mellitus complication detail: with chronic kidney disease Diabetes mellitus senior care insulin use: with long term care phlebotomist use Chronic kidney disease stage: stage 3 (moderate) Qualified Code(s): E11.22 - Type 2 diabetes mellitus with diabetic chronic kidney disease; N18.3 - Chronic kidney disease, stage 3 (moderate); Z79.4 - bed bug exterminator (current) use of insulin - Subjective Interval history: Patient seen and examined. Reports her back pain is worsened since hardware removal (09/25). Her headache has resolved. Denies chest pain, dyspnea, cough, N/ V/D, dysuria, or leg edema. - Constitutional Vitals: Temp Pulse Resp BP Pulse Ox 98.3 F 64 18 108/64 97 09/25/16 06:38 09/25/16 06:38 09/25/16 08:13 09/25/16 06:38 09/25/16 08:13 General appearance: Present: A&O X 3, no acute distress, answers questions appropriately - Head Head exam: Present: atraumatic, normocephalic - Eye Eye exam: Present: EOMI, sclera anicteric - ENT ENT exam: Present: mucous membranes moist - Respiratory Respiratory exam: Present: CTAB. Absent: rales, rhonchi, wheezes - Cardiovascular Cardiovascular exam: Present: RRR, +S1, +S2. Absent: diastolic murmur, systolic murmur - GI/Abdominal GI/Abdominal exam: Present: normal bowel sounds, soft. Absent: distended, rigid , tenderness - Extremities Exam Extremities exam: Present: warm, radial pulses palpable and symmetrical. Absent : calf tenderness, pedal edema, tenderness - Neurological Exam Neurological exam: Present: alert, CN II-XII intact, oriented X3, no focal deficits Internal Medicine: Result - Labs CBC & Chem 7: 09/25/16 06:20 09/25/16 06:20 Labs: Short CBC 09/25/16 Range/Units 06:20 WBC 6.9 (4.3-11.1) K/mcL Hgb 10.8 L (11.5-15.4) g/dL Hct 34.5 L (35.3-44.9) % Plt Count 204 (140-400) K/mcL BMP 09/25/16 06:20 Sodium 138 Potassium 4.8 H Chloride 107 Carbon Dioxide 25 BUN 17 Creatinine 1.70 H Glucose 203 H Calcium 8.7 - ABG Interpretation ABG results: PT/INR, D-dimer PT 11.3 Seconds (9.4-12.1) 09/23/16 13:11 - VTE Documentation of Mechanical Device: Intermittent pneumatic compression device Consult Discharge Plan - Plan Additional Instructions: Follow wound care instructions per nursing and wound care. Do not submerge the incisions in water until we tell you it is okay. We will give more instructions upon your discharge home. Referrals: NONE,PCP [Non-Partnered Physician] - <Jean Paul Ramsey - Last Filed: 09/25/16 17:17> Date of Encounter: 09/25/16 - Assessment and plan (1) Infection of spinal cord stimulator Current Visit: Yes Status: Acute Qualifiers: Encounter type: subsequent encounter Qualified Code(s): T85.733D - Infection and inflammatory reaction due to implanted electronic neurostimulator of spinal cord, electrode (lead), subsequent encounter (2) Diabetes mellitus Current Visit: Yes Status: Chronic Qualifiers: Diabetes mellitus type: type 2 Diabetes mellitus complication status: with kidney complications Diabetes mellitus complication detail: with chronic kidney disease Diabetes mellitus long term care phlebotomist insulin use: with long term care phlebotomist use Chronic kidney disease stage: stage 3 (moderate) Qualified Code(s): E11.22 - Type 2 diabetes mellitus with diabetic chronic kidney disease; N18.3 - Chronic kidney disease, stage 3 (moderate); Z79.4 - [facility] (current) use of insulin (3) COPD with asthma Current Visit: No Status: Chronic (4) Tobacco abuse Current Visit: No Status: Acute (5) CKD (chronic kidney disease) stage 3, GFR 30-59 ml/min Current Visit: No Status: Acute (6) Diabetic neuropathy Current Visit: No Status: Chronic Qualifiers: Diabetes mellitus type: type 2 Diabetes mellitus complication detail: diabetic polyneuropathy Qualified Code(s): E11.42 - Type 2 diabetes mellitus with diabetic polyneuropathy (7) Chronic pain Current Visit: Yes Status: Acute Qualifiers: Chronic pain type: other chronic pain Qualified Code(s): G89.29 - Other chronic pain - Constitutional Vitals: Temp Pulse Resp BP Pulse Ox 98.5 F 73 16 107/63 95 09/25/16 14:29 09/25/16 14:29 09/25/16 14:29 09/25/16 14:29 09/25/16 14:29 Internal Medicine: Result - Labs CBC & Chem 7: 09/25/16 06:20 09/25/16 06:20 Labs: Short CBC 09/25/16 Range/Units 06:20 WBC 6.9 (4.3-11.1) K/mcL Hgb 10.8 L (11.5-15.4) g/dL Hct 34.5 L (35.3-44.9) % Plt Count 204 (140-400) K/mcL BMP 09/25/16 06:20 Sodium 138 Potassium 4.8 H Chloride 107 Carbon Dioxide 25 BUN 17 Creatinine 1.70 H Glucose 203 H Calcium 8.7 - ABG Interpretation ABG results: PT/INR, D-dimer PT 11.3 Seconds (9.4-12.1) 09/23/16 13:11 - Attending Attestation I examined this patient and my medical decision-making was reviewed with the Resident Physician on 09/25/16. I agree with the documented findings, disposition and treatment plan as described except to the extent set forth below. Ms. Calvo is currently admitted for presumed infected spinal stimulator. She remains moderate to high risk due to potential for worsening infectious status. Ms. Calvo is having more pain since surgery and relates it to wound vac. Tolerating IV abx. Cultures still pending. No fever or chills. No GI symptoms. Exam Alert. Mild distress due to pain. Mucus membranes dry Heart reg No wheeze Dressing intact No edema I/P 1. Infected spinal stimulator 2. DM 3. Chronic pain Further diagnoses and plan as above. Anticipate d/c home on IV abx.
[2016-09-25] MEDS: DAPTOmycin 450 MG in 0.9 % Sodium Chloride 100 ML IVPB SCH (11:17)
[2016-09-25] MEDS: traMADol 50 MG TABLET PO PRN (12:39)
[2016-09-25] MEDS ORDERED: ceFAZolin 2,000 MG in D5% in Water 100 ML IVPB SCH (13:00)
--- NOTE | 2016-09-25 16:18 | Infectious Disease Progress No ---
Date of Encounter: 09/25/16 Time of Encounter: 16:16 - Assessment and Plan (1) Wound dehiscence, surgical Current Visit: Yes Status: Acute Postop day 2 status post explantation of original pulse generator and spinal cord stimulation leads. Wound to drain is in place. CT of the lumbar spine revealed ill-defined fluid adjacent to the paraspinal musculature along the midline, without a well-defined rim. Probably, this is postsurgical edema. The possibility of phlegmon is also considered. Although an abscess is not entirely excluded, it is considered less likely. Superficial Wound cultures were collected on 09/23/16 reveal Staphylococcus aureus Blood cultures were collected on 09/22/16 show no growth to date Patient was initially given Rocephin in the ED then transitioned to Clindamycin and Levaquin on 09/23/16 Wound was copiously irrigated intraoperatively with normal saline containing cefazolin on 09/23/16 Recommendations: Superficial wound cultures are positive for Staphylococcus aureus with multiple drug sensitivities Intra-operative cultures collected, results showed gram-positive cocci ( previous MSSA in the past) Continue Cefepime 2g IV q12h and Daptomycin 4mg/kg IV q24h. Will adjust antibiotics as needed once intra-operative cultures resulted. Duration of antibiotics depends on clinical course. Continue to monitor for drug toxicity. We will continue to follow Qualifiers: Encounter type: initial encounter Qualified Code(s): T81.31XA - Disruption of external operation (surgical) wound, not elsewhere classified, initial encounter (2) CKD (chronic kidney disease) stage 3, GFR 30-59 ml/min Current Visit: No Status: Acute Nephrology following. Previous stage V renal failure following vancomycin administration. Will avoid/limit exposure to nephrotoxins (3) Diabetes mellitus Current Visit: Yes Status: Chronic Management per primary Qualifiers: Diabetes mellitus type: type 2 Diabetes mellitus complication status: with kidney complications Diabetes mellitus complication detail: with chronic kidney disease Diabetes mellitus termite control servicer insulin use: with termite control servicer use Chronic kidney disease stage: stage 3 (moderate) Qualified Code(s): E11.22 - Type 2 diabetes mellitus with diabetic chronic kidney disease; N18.3 - Chronic kidney disease, stage 3 (moderate); Z79.4 - director long term care (current) use of insulin (4) Diabetic neuropathy Current Visit: No Status: Chronic Continue current management Qualifiers: Diabetes mellitus type: type 2 Diabetes mellitus complication detail: diabetic polyneuropathy Qualified Code(s): E11.42 - Type 2 diabetes mellitus with diabetic polyneuropathy (5) Tobacco abuse Current Visit: No Status: Acute Patient declined a nicotine patch - Subjective Interval history: Laying in bed appears comfortable and nontoxic. tells me that he had a better night tonight. Better appetite no vomiting episodes today. Overall slightly improved. Patient continues to be afebrile and WBC stable. Infect Dis PN-Objective Data - Labs CBC & Chem 7: 09/25/16 06:20 09/25/16 06:20 Labs: Laboratory Results - last 24 hr 09/23/16 09/24/16 09/24/16 22:50 07:43 11:24 WBC RBC Hgb Hct MCV MCH MCHC RDW Plt Count MPV Sodium Potassium Chloride Carbon Dioxide BUN Creatinine Est GFR ( Amer) Est GFR (Non-Af Amer) BUN/Creatinine Ratio Glucose POC Glucose 94 H 120 H 163 H Calculated Osmolality Calcium 09/24/16 09/24/16 09/25/16 17:00 20:52 06:20 WBC 6.9 RBC 3.26 L Hgb 10.8 L Hct 34.5 L MCV 105.8 H MCH 33.1 MCHC 31.3 L RDW 12.4 Plt Count 204 MPV 11.2 Sodium Potassium Chloride Carbon Dioxide BUN Creatinine Est GFR ( Amer) Est GFR (Non-Af Amer) BUN/Creatinine Ratio Glucose POC Glucose 218 H 189 H Calculated Osmolality Calcium 09/25/16 09/25/16 09/25/16 06:20 07:24 10:44 WBC RBC Hgb Hct MCV MCH MCHC RDW Plt Count MPV Sodium 138 Potassium 4.8 H Chloride 107 Carbon Dioxide 25 BUN 17 Creatinine 1.70 H Est GFR ( Amer) 39 L Est GFR (Non-Af Amer) 32 L BUN/Creatinine Ratio 10 Glucose 203 H POC Glucose 192 H 183 H Calculated Osmolality 293 Calcium 8.7 Exam - Constitutional Vitals: Temp Pulse Resp BP Pulse Ox 98.5 F 73 16 107/63 95 09/25/16 14:29 09/25/16 14:29 09/25/16 14:29 09/25/16 14:29 09/25/16 14:29 General appearance: no acute distress, no febrile - Head Head exam: Present: atraumatic, normocephalic - ENT ENT exam: Present: mucous membranes dry - Respiratory Additional comments: Air sounds audible both lung nguyen, some diffuse rhonchi and crackles both lung nguyen at the bases. Poor inspiratory effort. - Cardiovascular Cardiovascular exam: Present: RRR, +S1, +S2 - Extremities Exam Extremities exam: Present: normal inspection - VTE Documentation of Mechanical Device: Intermittent pneumatic compression device Consult Discharge Plan - Plan Additional Instructions: Follow wound care instructions per nursing and wound care. Do not submerge the incisions in water until we tell you it is okay. We will give more instructions upon your discharge home. Referrals: NONE,PCP [Non-Partnered Physician] -
[2016-09-25] MEDS: ceFAZolin 2,000 MG in D5% in Water 100 ML IVPB SCH (16:49)
--- NOTE | 2016-09-25 17:20 | Discharge Summary ---
<Eduardo Galaviz - Last Filed: 09/26/16 15:36> Date of Encounter: 09/26/16 Time of Encounter: 09:37 - Discharge Diagnosis (1) Infection of spinal cord stimulator Priority: Primary Status: Acute Qualifiers: Encounter type: subsequent encounter Qualified Code(s): T85.733D - Infection and inflammatory reaction due to implanted electronic neurostimulator of spinal cord, electrode (lead), subsequent encounter (2) CKD stage 3 secondary to diabetes Priority: Secondary Status: Chronic (3) Diabetes mellitus Priority: Secondary Status: Chronic Qualifiers: Diabetes mellitus type: type 2 Diabetes mellitus complication status: with kidney complications Diabetes mellitus complication detail: with chronic kidney disease Diabetes mellitus termite control service representative insulin use: with termite control service representative use Chronic kidney disease stage: stage 3 (moderate) Qualified Code(s): E11.22 - Type 2 diabetes mellitus with diabetic chronic kidney disease; N18.3 - Chronic kidney disease, stage 3 (moderate); Z79.4 - moth exterminator (current) use of insulin - Discharge Medications Prescriptions: OxyCODONE/APAP 5/325 [Percocet 5/325 MG] 1 - 2 each PO Q4HR PRN #30 tab PRN Reason: Moderate Pain Nafcillin in Dextrose,Iso-Osm [Nafcillin 2 gm/ 100 ml Inj] 12 gm IV Q24H #14 froz.piggy Home Medications: Albuterol Sulfate [Proair Hfa] 2 puff IH Q4H PRN 09/24/15 [History] Aspirin Enteric Coated [Aspirin EC] 81 mg PO DAILY 09/24/15 [History] Ergocalciferol (VITAMIN D2) [Vitamin D2 (50,000 UNIT)] 50,000 unit PO HERNANDEZ [History] Famotidine [Pepcid] 20 mg PO BID 09/24/15 [History] Fenofibrate [Lofibra] 160 mg PO DAILY 09/24/15 [History] Isosorbide MONOnitrate (24 HR) [Imdur] 30 mg PO DAILY 09/24/15 [History] Montelukast [Singulair] 10 mg PO HS 09/24/15 [History] Roflumilast [Daliresp] 500 mcg PO DAILY 09/24/15 [History] SUMAtriptan succinate [Imitrex] 50 mg PO DAILY PRN 09/24/15 [History] Tizanidine HCl 4 mg PO TID PRN 09/24/15 [History] traMADol [Ultram] 50 mg PO TID PRN 09/24/15 [History] Metoprolol XL (24 HR) Succ [Toprol Xl] 25 mg PO DAILY 10/19/15 [History] Oxaprozin [Daypro] 600 mg PO BID 10/19/15 [History] Docusate Sodium [Doc-Q-Lace] 200 mg PO HS 10/26/15 [History] EPINEPHrine [Epipen] 0.3 mg IM AD PRN 10/26/15 [History] Amitriptyline [Elavil] 25 mg PO HS 09/22/16 [History] Bacitracin OINT [Ak-Tracin] 1 appl TP BID 09/22/16 [History] Budesonide/Formoterol 80/4.5 [Symbicort 80/4.5] 2 puff IH BID 09/22/16 [History ] Cyanocobalamin (Vitamin B-12) [Vitamin B12] 1,000 mcg PO DAILY 09/22/16 [History ] Duloxetine HCl [Cymbalta] 60 mg PO DAILY 09/22/16 [History] Febuxostat [Uloric] 40 mg PO DAILY 09/22/16 [History] Folic Acid 1 mg PO DAILY 09/22/16 [History] Glimepiride [Amaryl] 4 mg PO BID 09/22/16 [History] Omeprazole [PriLOSEC] 40 mg PO DAILY 09/22/16 [History] Rosuvastatin [Crestor] 20 mg PO HS 09/22/16 [History] Tiotropium [Spiriva] 18 mcg IH 0700 09/22/16 [History] Nafcillin in Dextrose,Iso-Osm [Nafcillin 2 gm/ 100 ml Inj] 12 gm IV Q24H #14 froz.piggy 09/26/16 [Rx] OxyCODONE/APAP 5/325 [Percocet 5/325 MG] 1 - 2 each PO Q4HR PRN #30 tab [Rx] Allergies/Adverse Reactions: Allergies Bee Pollen Allergy (Verified 09/22/16 16:53) See Comments Erythromycin Base Allergy (Verified 09/22/16 16:53) Hives Procedures/tests Complete & Pending: Procedures Performed prior 72 hours Category Date Time Status ECG 12 lead ECG [ECG] Routine Y 09/23/16 14:17 Completed Date of admission: 09/23/16 19:17 Primary care physician: Rashmi Timmons MD Consults: 09/25/16 09:41 Consult to Mechanical Energy Engineer [CONS] Routine Reason for SW Consult: Discharge planning, home health at discharge for wound vac and possible IV antibiotics 09/25/16 15:46 Consult to Invasive Line Access Team [CONS] Routine Reason for Consult: home IV ATB Line Type: EPIV Discharging clinician: Eduardo Galaviz Anticipated date of discharge: 09/26/16 - Patient Status Disposition: Home Health Service Condition: Fair Functional capacity at discharge: independent ambulation Overall status at discharge: patient is progressing back to baseline - Discharge Instructions Instructions: Nafcillin (Injection), Acute Wound Care (DC) Follow Up With: Johnathan Willoughby DO [Partnered Physician] - 10/23/16 9:35 am Noemi Kincaid CARE GIVER [Advanced Practice Nurse] - 10/06/16 9:00 am Miguel Kelsey DO [Partnered Physician] - (OFFICE CLOSED. WEB REQUEST MADE.) NONE,PCP [Non-Partnered Physician] - Additional Instructions: Follow wound care instructions per nursing and wound care. Do not submerge the incisions in water until we tell you it is okay. Follow instructions of home health. - Diet and Activity Activity: increase activity as tolerated Diet: advance to your usual diet Interval History: Patient seen and examined. Reports her back pain is better controlled than yesterday, no other complaints. Wound vac in place. Denies fevers/chills, headache, chest pain, dyspnea, abdominal pain, N/V/D, dysuria, or leg pain/ swelling. Hospital course: Ms. Calvo is a 46 year old female presenting with spinal stimulator infection now on POD #3 s/p hardware removal. This is her second spinal stimulator infection. Surgical cultures show la-sensitive Staph. aureus and will be treated with IV Nafcillin and wound vac. Her pain will be treated with Oxycodone as the spinal stimulator was previously controlling her pain very well. She will be discharged with home health and wound care. - Time Spent with Patient Total time spent providing and/or coordinating discharge services: - Constitutional Vitals: Temp Pulse Resp BP Pulse Ox 98.5 F 84 16 113/77 99 09/26/16 07:43 09/26/16 07:43 09/26/16 07:51 09/26/16 07:43 09/26/16 07:51 General appearance: Present: A&O X 3, no acute distress, answers questions appropriately - Head Head exam: Present: atraumatic, normocephalic - Eye Eye exam: Present: EOMI, sclera anicteric - ENT ENT exam: Present: mucous membranes moist - Respiratory Respiratory exam: Present: CTAB. Absent: rales, rhonchi, wheezes - Cardiovascular Cardiovascular exam: Present: RRR, +S1, +S2. Absent: diastolic murmur, systolic murmur - GI/Abdominal GI/Abdominal exam: Present: normal bowel sounds, soft. Absent: distended, rigid , tenderness - Extremities Exam Extremities exam: Present: warm, radial pulses palpable and symmetrical. Absent : calf tenderness, joint swelling, pedal edema - Neurological Exam Neurological exam: Present: alert, CN II-XII intact, oriented X3, no focal deficits <Jean Paul Ramsey - Last Filed: 09/26/16 17:45> Date of Encounter: 09/26/16 - Discharge Diagnosis (1) Infection of spinal cord stimulator Status: Acute Qualifiers: Encounter type: subsequent encounter Qualified Code(s): T85.733D - Infection and inflammatory reaction due to implanted electronic neurostimulator of spinal cord, electrode (lead), subsequent encounter (2) Diabetes mellitus Status: Chronic Qualifiers: Diabetes mellitus type: type 2 Diabetes mellitus complication status: with kidney complications Diabetes mellitus complication detail: with chronic kidney disease Diabetes mellitus residential insulin use: with residential use Chronic kidney disease stage: stage 3 (moderate) Qualified Code(s): E11.22 - Type 2 diabetes mellitus with diabetic chronic kidney disease; N18.3 - Chronic kidney disease, stage 3 (moderate); Z79.4 - skilled nursing (current) use of insulin (3) COPD with asthma Priority: Secondary Status: Chronic (4) Tobacco abuse Priority: Secondary Status: Acute (5) CKD (chronic kidney disease) stage 3, GFR 30-59 ml/min Priority: Secondary Status: Acute (6) Diabetic neuropathy Priority: Secondary Status: Chronic Qualifiers: Diabetes mellitus type: type 2 Diabetes mellitus complication detail: diabetic polyneuropathy Qualified Code(s): E11.42 - Type 2 diabetes mellitus with diabetic polyneuropathy (7) Chronic pain Priority: Secondary Status: Acute Qualifiers: Chronic pain type: other chronic pain Qualified Code(s): G89.29 - Other chronic pain Procedures/tests Complete & Pending: Procedures Performed prior 72 hours Category Date Time Status ECG 12 lead ECG [ECG] Routine Y 09/23/16 14:17 Completed Date of admission: 09/23/16 19:17 Primary care physician: Rashmi Timmons MD Consults: 09/25/16 09:41 Consult to Mechanical Energy Engineer [CONS] Routine Reason for SW Consult: Discharge planning, home health at discharge for wound vac and possible IV antibiotics 09/25/16 15:46 Consult to Invasive Line Access Team [CONS] Routine Reason for Consult: home IV ATB Line Type: EPIV Hospital course: Ms. Calvo is a 46 year old female - Time Spent with Patient Total time spent providing and/or coordinating discharge services: 38min - Constitutional Vitals: Temp Pulse Resp BP Pulse Ox 98.5 F 73 16 107/63 95 09/25/16 14:29 09/25/16 14:29 09/25/16 14:29 09/25/16 14:29 09/25/16 14:29 General appearance: Present: A&O X 3, no acute distress, answers questions appropriately - VTE Documentation of Mechanical Device: Intermittent pneumatic compression device - Attending Attestation I examined this patient and my medical decision-making was reviewed with the Resident Physician on 09/26/16. I agree with the documented findings, disposition and treatment plan as described except to the extent set forth below. Ms. Calvo was admitted for presumptive infected spinal stimulator. It is now removed. Her cultures grew MSSA. She is on IV abx and will be d/c home. Her vitals are stable and she is afebrile. Exam Alert. Comfortable Heart reg No wheeze Plan D/C home today - continuous Nafcillin Follow with pain management and ID.
[2016-09-26] MEDS: *HR* Morphine 2 MG/ML SYRINGE IVP PRN ×2 (00:11→09:56)
[2016-09-26] MEDS: Insulin LISPRO 300 UNITS/3 ML VIAL SQ SCH ×4 (00:17→16:11)
[2016-09-26] MEDS: ceFAZolin 2,000 MG in D5% in Water 100 ML IVPB SCH ×2 (01:14→09:56)
[2016-09-26 06:37] LABS: Hematocrit 35.3 % (35.3-44.9); Hemoglobin 11.5 g/dL (11.5-15.4); Mean Corpuscular HGB Conc 32.6 g/dL (31.6-35.5); Mean Corpuscular Volume 104.4 fL (83.0-100.0); Mean Platelet Volume 10.9 fL (9.4-12.4); Platelet Count 211 K/mcL (140-400); Red Blood Count 3.38 M/mcL (3.82-4.97); Red Cell Distribution Width 12.3 % (11.5-14.5)
[2016-09-26 06:50] LABS: Calcium 9.3 mg/dL (8.6-10.8); Potassium 4.5 mEq/L (3.5-4.5)
[2016-09-26] MEDS: Tiotropium 18 MCG inhalation IH SCH (07:50)
[2016-09-26] MEDS: Budesonide/Formoterol 80/4.5 MDI IH SCH (07:50)
[2016-09-26] MEDS: *HR* OxyCODONE/APAP 5/325 TABLET PO PRN ×3 (08:09→16:08)
[2016-09-26] MEDS: Fenofibrate 54 MG TABLET PO SCH (08:10)
[2016-09-26] MEDS: Isosorbide MONOnitrate (24 HR) 30 MG TAB.ER.24H PO SCH (08:10)
[2016-09-26] MEDS: Patient Taking Own Medication 1 EACH PO SCH (08:10)
[2016-09-26] MEDS: Metoprolol XL (24 HR) Succ 25 MG TAB.ER.24H PO SCH (08:10)
[2016-09-26] MEDS: Famotidine 20 MG TABLET PO SCH (08:10)
[2016-09-26] MEDS: Aspirin Enteric Coated 81 MG Tablet PO SCH (08:10)
--- NOTE | 2016-09-26 12:20 | Infectious Disease Progress No ---
Date of Encounter: 09/26/16 Time of Encounter: 12:17 - Assessment and Plan (1) Wound dehiscence, surgical Current Visit: Yes Status: Acute Postop day 3 status post explantation of original pulse generator and spinal cord stimulation leads. Wound to drain is in place. CT of the lumbar spine revealed ill-defined fluid adjacent to the paraspinal musculature along the midline, without a well-defined rim. Probably, this is postsurgical edema. The possibility of phlegmon is also considered. Although an abscess is not entirely excluded, it is considered less likely. Superficial Wound cultures were collected on 09/23/16 reveal Staphylococcus aureus. Intra-operative cultures grew MSSA. Blood cultures were collected on 09/22/16 show no growth to date Patient was initially given Rocephin in the ED then transitioned to Clindamycin and Levaquin on 09/23/16 Wound was copiously irrigated intraoperatively with normal saline containing cefazolin on 09/23/16 Recommendations: Superficial wound cultures are positive for Staphylococcus aureus with multiple drug sensitivities Intra-operative cultures collected, results showed gram-positive cocci ( previous MSSA in the past) Antibiotics switched to cefazolin per the primary team. Discussed medication regimen with the patient and she prefers to proceed with nafcillin 12 grams IV Q24H per continuous IV infusion. Duration of treatment depends on the clinical picture, but likely at least two weeks of IV antibiotics will be required, followed by orals. Get weekly CBC, BUN/Cr, ESR, and CRP. Weekly EPIV care per protocol. Follow up with ID 10/06/16 at 0900. Qualifiers: Encounter type: initial encounter Qualified Code(s): T81.31XA - Disruption of external operation (surgical) wound, not elsewhere classified, initial encounter (2) Infection of spinal cord stimulator Current Visit: Yes Status: Acute Status post explantation of original pulse generator and two spinal cord stimulation leads 09/23/[address] Willoughby. Qualifiers: Encounter type: subsequent encounter Qualified Code(s): T85.733D - Infection and inflammatory reaction due to implanted electronic neurostimulator of spinal cord, electrode (lead), subsequent encounter (3) Diabetes mellitus Current Visit: Yes Status: Chronic Management per primary. Recommend aggressive glucose monitoring and control to promote wound healing and prevent re-infection. Qualifiers: Diabetes mellitus type: type 2 Diabetes mellitus complication status: with kidney complications Diabetes mellitus complication detail: with chronic kidney disease Diabetes mellitus fci insulin use: with intermodal dispatcher use Chronic kidney disease stage: stage 3 (moderate) Qualified Code(s): E11.22 - Type 2 diabetes mellitus with diabetic chronic kidney disease; N18.3 - Chronic kidney disease, stage 3 (moderate); Z79.4 - custodial (current) use of insulin (4) CKD stage 3 secondary to diabetes Current Visit: Yes Status: Chronic Monitor renal function and dose-adjust antibiotics as required. Avoid nephrotoxins as able. (5) Chronic pain Current Visit: Yes Status: Acute Qualifiers: Chronic pain type: other chronic pain Qualified Code(s): G89.29 - Other chronic pain (6) Diabetic neuropathy Current Visit: No Status: Chronic Continue current management Qualifiers: Diabetes mellitus type: type 2 Diabetes mellitus complication detail: diabetic polyneuropathy Qualified Code(s): E11.42 - Type 2 diabetes mellitus with diabetic polyneuropathy - Subjective Interval history: Patient seen and examined. No acute events noted overnight. Patient sitting up in bed with significant other at the bedside. Complains of back soreness from her surgical procedure. Denies any fevers or chills or rigors. Denies any chest pain, shortness of breath, or cough. Denies any nausea, vomiting, diarrhea, or constipation. Denies any urinary complaints. Denies any oral thrush or new skin lesions. Infect Dis PN-Objective Data - Labs CBC & Chem 7: 09/26/16 06:11 09/26/16 06:11 Labs: Laboratory Results - last 24 hr 09/25/16 09/25/16 09/26/16 16:45 21:35 00:14 WBC RBC Hgb Hct MCV MCH MCHC RDW Plt Count MPV Sodium Potassium Chloride Carbon Dioxide BUN Creatinine Est GFR ( Amer) Est GFR (Non-Af Amer) BUN/Creatinine Ratio Glucose POC Glucose 231 H 202 H 221 H Calculated Osmolality Calcium 09/26/16 09/26/16 09/26/16 06:11 06:11 07:49 WBC 6.8 RBC 3.38 L Hgb 11.5 Hct 35.3 MCV 104.4 H MCH 34.0 H MCHC 32.6 RDW 12.3 Plt Count 211 MPV 10.9 Sodium 138 Potassium 4.5 Chloride 104 Carbon Dioxide 27 BUN 19 Creatinine 1.66 H Est GFR ( Amer) 40 L Est GFR (Non-Af Amer) 33 L BUN/Creatinine Ratio 11 Glucose 139 H POC Glucose 212 H Calculated Osmolality 291 Calcium 9.3 09/26/16 12:06 WBC RBC Hgb Hct MCV MCH MCHC RDW Plt Count MPV Sodium Potassium Chloride Carbon Dioxide BUN Creatinine Est GFR ( Amer) Est GFR (Non-Af Amer) BUN/Creatinine Ratio Glucose POC Glucose 239 H Calculated Osmolality Calcium Cultures: Cultures 09/23/16 18:52 Wound Culture - Final Incision Staphylococcus aureus 09/23/16 13:00 Wound Culture - Final Back Staphylococcus aureus 09/23/16 18:52 Wound Culture - Preliminary Incision No growth. 09/23/16 18:52 Acid Fast Stain - Final Other-Specify in Comments 09/23/16 18:01 Acid Fast Stain - Final Other-Specify in Comments 09/22/16 21:02 Blood Culture - Preliminary Peripheral Venipuncture No growth. 09/22/16 21:00 Blood Culture - Preliminary Peripheral Venipuncture No growth. Exam - Constitutional Vitals: Temp Pulse Resp BP Pulse Ox 97.9 F 85 18 110/78 98 09/26/16 12:02 09/26/16 12:02 09/26/16 12:02 09/26/16 12:02 09/26/16 12:02 General appearance: average body habitus, cooperative, no acute distress - Head Head exam: Present: atraumatic, normal inspection, normocephalic - Eye Eye exam: Present: EOMI, normal appearance, PERRL Pupils: Present: normal accommodation - ENT ENT exam: Present: mucous membranes moist - Neck Neck exam: Present: normal inspection - Respiratory Respiratory exam: Present: CTAB. Absent: rales, respiratory distress, rhonchi, wheezes - Cardiovascular Cardiovascular exam: Present: RRR, +S1, +S2 - GI/Abdominal GI/Abdominal exam: Present: normal bowel sounds, soft. Absent: distended, tenderness - Extremities Exam Extremities exam: Present: normal inspection. Absent: joint swelling, pedal edema, tenderness - Back Exam Additional comments: Midline surgical incision with wound VAC dressing intact and sponge well- compressed. Dressing to the right lower back C/D/I. Surgical incision with wound edges intact. Drain noted. No active drainage, warmth, or erythema noted. - Neurological Exam Neurological exam: Present: alert, oriented X3, no focal deficits - Psychiatric Psychiatric exam: Present: normal affect, normal mood - Skin Skin exam: Present: dry, intact, normal color, warm - Additional findings Additional findings: EPIV noted to the RUE with transparent dressing C/D/I. - VTE Documentation of Mechanical Device: Intermittent pneumatic compression device Consult Discharge Plan - Plan Additional Instructions: Follow wound care instructions per nursing and wound care. Do not submerge the incisions in water until we tell you it is okay. We will give more instructions upon your discharge home. Referrals: NONE,PCP [Non-Partnered Physician] - Prescriptions: Cefazolin Sodium in 0.9 % NaCl [Cefazolin 2 G/100 ml-0.9% NaCl] 2 gm IV Q8H #42 plast..bag Nafcillin in Dextrose,Iso-Osm [Nafcillin 2 gm/ 100 ml Inj] 12 gm IV Q24H #14 yao
--- NOTE | 2016-09-26 13:29 | Internal Med Progress Note ---
<GuillaumeEduardo Roshan - Last Filed: 09/26/16 13:27> Date of Encounter: 09/26/16 Time of Encounter: 13:27 - Assessment and plan (1) Infection of spinal cord stimulator Status: Acute Assessment and plan: POD #3 s/p removal of spinal cord stimulator Pain controlled - on Percocet, morphine, and tramadol Surgical culture - staph aureus Blood cultures- no growth to date Wound culture - la-sensitive staph. aureus ID following - appreciate recommendations - continue antibiotics as per ID Plan at discharge is home health, PICC line, wound drain, and continued antibiotics Qualifiers: Encounter type: subsequent encounter Qualified Code(s): T85.733D - Infection and inflammatory reaction due to implanted electronic neurostimulator of spinal cord, electrode (lead), subsequent encounter (2) CKD stage 3 secondary to diabetes Status: Chronic Assessment and plan: Cr at baseline. Continue to monitor. Avoid nephrotoxic drugs. (3) Diabetes mellitus Status: Chronic Assessment and plan: Glucose under control. Continue SSI. Qualifiers: Diabetes mellitus type: type 2 Diabetes mellitus complication status: with kidney complications Diabetes mellitus complication detail: with chronic kidney disease Diabetes mellitus chcf insulin use: with rn long term care use Chronic kidney disease stage: stage 3 (moderate) Qualified Code(s): E11.22 - Type 2 diabetes mellitus with diabetic chronic kidney disease; N18.3 - Chronic kidney disease, stage 3 (moderate); Z79.4 - roasterman (current) use of insulin - Subjective Interval history: Patient seen and examined. Reports her back pain is better controlled than yesterday, no other complaints. Wound drain in place. Denies fevers/chills, headache, chest pain, dyspnea, abdominal pain, N/V/D, dysuria, or leg pain/ swelling. - Constitutional Vitals: Temp Pulse Resp BP Pulse Ox 97.9 F 85 18 110/78 98 09/26/16 12:02 09/26/16 12:02 09/26/16 12:02 09/26/16 12:02 09/26/16 12:02 General appearance: Present: A&O X 3, no acute distress, answers questions appropriately - Head Head exam: Present: atraumatic, normocephalic - Eye Eye exam: Present: EOMI, sclera anicteric - ENT ENT exam: Present: mucous membranes moist - Respiratory Respiratory exam: Present: CTAB. Absent: rales, rhonchi, wheezes - Cardiovascular Cardiovascular exam: Present: RRR, +S1, +S2. Absent: diastolic murmur, systolic murmur - GI/Abdominal GI/Abdominal exam: Present: normal bowel sounds, soft. Absent: distended, rigid , tenderness - Extremities Exam Extremities exam: Present: warm, radial pulses palpable and symmetrical. Absent : calf tenderness, joint swelling, pedal edema - Neurological Exam Neurological exam: Present: alert, CN II-XII intact, oriented X3, no focal deficits Internal Medicine: Result - Labs CBC & Chem 7: 09/26/16 06:11 09/26/16 06:11 Labs: Short CBC 09/26/16 Range/Units 06:11 WBC 6.8 (4.3-11.1) K/mcL Hgb 11.5 (11.5-15.4) g/dL Hct 35.3 (35.3-44.9) % Plt Count 211 (140-400) K/mcL BMP 09/26/16 06:11 Sodium 138 Potassium 4.5 Chloride 104 Carbon Dioxide 27 BUN 19 Creatinine 1.66 H Glucose 139 H Calcium 9.3 - ABG Interpretation ABG results: PT/INR, D-dimer PT 11.3 Seconds (9.4-12.1) 09/23/16 13:11 - VTE Documentation of Mechanical Device: Intermittent pneumatic compression device Consult Discharge Plan - Plan Instructions: Nafcillin (Injection), Acute Wound Care (DC) Additional Instructions: Follow wound care instructions per nursing and wound care. Do not submerge the incisions in water until we tell you it is okay. Follow instructions of home health. Referrals: Johnathan Willoughby DO [Partnered Physician] - 10/23/16 9:35 am Noemi Kincaid CNP [Advanced Practice Nurse] - 10/06/16 9:00 am Miguel Kelsey DO [Partnered Physician] - (OFFICE CLOSED. WEB REQUEST MADE.) NONE,PCP [Non-Partnered Physician] - Prescriptions: OxyCODONE/APAP 5/325 [Percocet 5/325 MG] 1 - 2 each PO Q4HR PRN #30 tab PRN Reason: Moderate Pain Nafcillin in Dextrose,Iso-Osm [Nafcillin 2 gm/ 100 ml Inj] 12 gm IV Q24H #14 froz.piggy <Jean Paul Ramsey - Last Filed: 09/26/16 17:46> Date of Encounter: 09/26/16 - Assessment and plan (1) Infection of spinal cord stimulator Status: Acute Qualifiers: Encounter type: subsequent encounter Qualified Code(s): T85.733D - Infection and inflammatory reaction due to implanted electronic neurostimulator of spinal cord, electrode (lead), subsequent encounter (2) Diabetes mellitus Status: Chronic Qualifiers: Diabetes mellitus type: type 2 Diabetes mellitus complication status: with kidney complications Diabetes mellitus complication detail: with chronic kidney disease Diabetes mellitus chcf insulin use: with rn long term care use Chronic kidney disease stage: stage 3 (moderate) Qualified Code(s): E11.22 - Type 2 diabetes mellitus with diabetic chronic kidney disease; N18.3 - Chronic kidney disease, stage 3 (moderate); Z79.4 - care home (current) use of insulin (3) COPD with asthma Status: Chronic (4) Tobacco abuse Status: Acute (5) CKD (chronic kidney disease) stage 3, GFR 30-59 ml/min Status: Acute (6) Diabetic neuropathy Status: Chronic Qualifiers: Diabetes mellitus type: type 2 Diabetes mellitus complication detail: diabetic polyneuropathy Qualified Code(s): E11.42 - Type 2 diabetes mellitus with diabetic polyneuropathy (7) Chronic pain Status: Acute Qualifiers: Chronic pain type: other chronic pain Qualified Code(s): G89.29 - Other chronic pain - Constitutional Vitals: Temp Pulse Resp BP Pulse Ox 97.8 F 73 18 95/60 94 09/26/16 15:03 09/26/16 15:03 09/26/16 15:03 09/26/16 15:03 09/26/16 15:03 Internal Medicine: Result - Labs CBC & Chem 7: 09/26/16 06:11 09/26/16 06:11 Labs: Short CBC 09/26/16 Range/Units 06:11 WBC 6.8 (4.3-11.1) K/mcL Hgb 11.5 (11.5-15.4) g/dL Hct 35.3 (35.3-44.9) % Plt Count 211 (140-400) K/mcL BMP 09/26/16 06:11 Sodium 138 Potassium 4.5 Chloride 104 Carbon Dioxide 27 BUN 19 Creatinine 1.66 H Glucose 139 H Calcium 9.3 - ABG Interpretation ABG results: PT/INR, D-dimer PT 11.3 Seconds (9.4-12.1) 09/23/16 13:11 - Attending Attestation Please see discharge summary of this date.
[2016-09-26 15:09] VITALS: BP 95/60
[2016-09-26] MEDS ORDERED: Nafcillin 2,000 MG in D5% in Water (Mini-Bag+) 100 ML IVPB SCH (16:00)
--- NOTE | 2016-09-26 16:37 | Physician Discharge Referral ---
<Eduardo Galaviz - Last Filed: 09/26/16 16:34> Home Health/Hosp Referral Info Transfer to: Home Health Provider in Charge Post Discharge: PCP - Diagnosis (1) Infection of spinal cord stimulator Priority: Primary Status: Acute (2) CKD stage 3 secondary to diabetes Priority: Secondary Status: Chronic (3) Diabetes mellitus Priority: Secondary Status: Chronic - Respiratory Orders Smoking Cessation: Smoking cessation has been advised. For more information, call the [place] Tobacco Quit Line at 8-466-XFZQ-NOW. - Diet/Nutrition Diet/Nutrition Orders: Regular - Activity Activity Orders: Ambulate - Services Needed Following services are medically necessary services: Home Infusion (ID recommends weekly CBC, BUN/Cr, ESR, and CRP) - Transfer Medications Prescriptions: OxyCODONE/APAP 5/325 [Percocet 5/325 MG] 1 - 2 each PO Q4HR PRN #30 tab PRN Reason: Moderate Pain Nafcillin in Dextrose,Iso-Osm [Nafcillin 2 gm/ 100 ml Inj] 12 gm IV Q24H #14 froz.piggy Home Medications: Albuterol Sulfate [Proair Hfa] 2 puff IH Q4H PRN 09/24/15 [History] Aspirin Enteric Coated [Aspirin EC] 81 mg PO DAILY 09/24/15 [History] Ergocalciferol (VITAMIN D2) [Vitamin D2 (50,000 UNIT)] 50,000 unit PO HERNANDEZ [History] Famotidine [Pepcid] 20 mg PO BID 09/24/15 [History] Fenofibrate [Lofibra] 160 mg PO DAILY 09/24/15 [History] Isosorbide MONOnitrate (24 HR) [Imdur] 30 mg PO DAILY 09/24/15 [History] Montelukast [Singulair] 10 mg PO HS 09/24/15 [History] Roflumilast [Daliresp] 500 mcg PO DAILY 09/24/15 [History] SUMAtriptan succinate [Imitrex] 50 mg PO DAILY PRN 09/24/15 [History] Tizanidine HCl 4 mg PO TID PRN 09/24/15 [History] traMADol [Ultram] 50 mg PO TID PRN 09/24/15 [History] Metoprolol XL (24 HR) Succ [Toprol Xl] 25 mg PO DAILY 10/19/15 [History] Oxaprozin [Daypro] 600 mg PO BID 10/19/15 [History] Docusate Sodium [Doc-Q-Lace] 200 mg PO HS 10/26/15 [History] EPINEPHrine [Epipen] 0.3 mg IM AD PRN 10/26/15 [History] Amitriptyline [Elavil] 25 mg PO HS 09/22/16 [History] Bacitracin OINT [Ak-Tracin] 1 appl TP BID 09/22/16 [History] Budesonide/Formoterol 80/4.5 [Symbicort 80/4.5] 2 puff IH BID 09/22/16 [History ] Cyanocobalamin (Vitamin B-12) [Vitamin B12] 1,000 mcg PO DAILY 09/22/16 [History ] Duloxetine HCl [Cymbalta] 60 mg PO DAILY 09/22/16 [History] Febuxostat [Uloric] 40 mg PO DAILY 09/22/16 [History] Folic Acid 1 mg PO DAILY 09/22/16 [History] Glimepiride [Amaryl] 4 mg PO BID 09/22/16 [History] Omeprazole [PriLOSEC] 40 mg PO DAILY 09/22/16 [History] Rosuvastatin [Crestor] 20 mg PO HS 09/22/16 [History] Tiotropium [Spiriva] 18 mcg IH 0700 09/22/16 [History] Nafcillin in Dextrose,Iso-Osm [Nafcillin 2 gm/ 100 ml Inj] 12 gm IV Q24H #14 froz.piggy 09/26/16 [Rx] OxyCODONE/APAP 5/325 [Percocet 5/325 MG] 1 - 2 each PO Q4HR PRN #30 tab [Rx] Allergies/Adverse Reactions: Allergies Bee Pollen Allergy (Verified 09/22/16 16:53) See Comments Erythromycin Base Allergy (Verified 09/22/16 16:53) Hives Certification: Further, I certify that my clinical findings support that this patient is homebound (i.e. absences from home require considerable and taxing effort and are for medical reasons or mosque services or infrequently or short duration when for other reasons) because: Homebound Reason: Post-surgery restriction and or conditions limit ability to leave home Attestation: My signature below is to certify that this patient is under my care and that I, or nurse practitioner, or a physician's sales assistants and salespersons working with me, has a face-to -face encounter with this patient. <Jean Paul Ramsey - Last Filed: 09/26/16 16:55> - Diagnosis (1) Infection of spinal cord stimulator Status: Acute (2) Diabetes mellitus Status: Chronic (3) COPD with asthma Status: Chronic (4) Tobacco abuse Status: Acute (5) CKD (chronic kidney disease) stage 3, GFR 30-59 ml/min Status: Acute (6) Diabetic neuropathy Status: Chronic (7) Chronic pain Status: Acute - Respiratory Orders Smoking Cessation: Smoking cessation has been advised. For more information, call the [place] Tobacco Quit Line at 4-554-XSCXNOW. - Services Needed Following services are medically necessary services: Nursing Certification: Further, I certify that my clinical findings support that this patient is homebound (i.e. absences from home require considerable and taxing effort and are for medical reasons or mosque services or infrequently or short duration when for other reasons) because: Attestation: My signature below is to certify that this patient is under my care and that I, or nurse practitioner, or a physician's sales assistants and salespersons working with me, has a face-to -face encounter with this patient.
--- NOTE | 2016-09-29 08:18 | Pain Management Progress Note ---
Date of Encounter: 09/26/16 Time of Encounter: 11:45 - Assessment and Plan (1) Hardware complicating wound infection Status: Acute I spoke with our infectious disease colleagues. Because hardware was present in the epidural space, the plan will be to treat her with IV antibiotics for several weeks and then switch to oral antibiotics. We have arranged for outpatient home health to coordinate antibiotic administration. Wound VAC is in place on the midline incision now and the lateral incision is well approximated and drainage a small amount of serosanguineous fluid. Wound VAC change will be every 2 days and lateral incision ABD dressing change will be every day. We will see the patient in the office next week for retention suture removal from the lateral wound. I will also follow up with the patient in time to coordinate long-term plan for painful diabetic peripheral neuropathy. At this point, the patient is clinically well. She is afebrile, her white blood cell count is normal, and there are no systemic signs of infection. Her headache has resolved. She denies fever, chills, sweating. We will continue to monitor her for signs of infection and certainly meningitis, but the risk of these is decreasing by the day. Qualifiers: Encounter type: subsequent encounter Qualified Code(s): T84.7XXD - Infection and inflammatory reaction due to other internal orthopedic prosthetic devices, implants and grafts, subsequent encounter Subjective Patient reports: feels better, pain is less, tolerating liquids well, tolerating a regular diet, voiding w/o difficulty, afebrile (LEYVA has resolved, pain occurs with dressing changes) Objective - General physical appearance no distress - Respiratory normal expansion, normal respiratory effort - Cardiovascular Cardiovascular exam: Present: RRR - Incision Incision: Present: draining, clean and dry, serosanguinous, approximated - Psychiatric oriented to time, oriented to person, oriented to place, speech is normal, memory intact - Labs 09/26/16 06:11 09/26/16 06:11 - VTE Documentation of Mechanical Device: Intermittent pneumatic compression device Consult Discharge Plan - Plan Instructions: Nafcillin (Injection), Acute Wound Care (DC) Additional Instructions: Follow wound care instructions per nursing and wound care. Do not submerge the incisions in water until we tell you it is okay. Follow instructions of home health. Referrals: Johnathan Willoughby DO [Partnered Physician] - 10/23/16 9:35 am Noemi Kincaid CNP [Advanced Practice Nurse] - 10/06/16 9:00 am Miguel Kelsey DO [Partnered Physician] - (OFFICE CLOSED. WEB REQUEST MADE.) NONE,PCP [Non-Partnered Physician] - Prescriptions: Nafcillin in Dextrose,Iso-Osm [Nafcillin 2 gm/ 100 ml Inj] 12 gm IV Q24H #14 froz.piggy OxyCODONE/APAP 5/325 [Percocet 5/325 MG] 1 - 2 each PO Q4HR PRN #30 tab PRN Reason: Moderate Pain
== END 2016-09-26 17:44 | disposition home health service (06) | DRG 711 ==
LOC: EMEROO 16:41 → 3NENU 16:41 → SUATTDRO 21:49 → 3NENU 22:25
PROVIDERS: ADMIT Internal Medicine; ATTEND Internal Medicine